=== PATIENT | male | born 1955 | race Caucasian/White ===

== ENCOUNTER 2016-05-04 15:15 | Outpatient (RCR) | payer BC ==
[~2016-05-04 15:15] MED LIST: ACTOS 15MG TAB15 MG PO; AMBIEN 5MG TABLE5 MG PO; ASPIRIN 32325 MG/TAB PO; ASPIRIN 81M81 MG/TA2 PO; CANA300T PO; CEPHALEXIN500 M1 PO; CIALIS20 MG PO; COREG 6.256.25 MG/TA PO; COUMADIN 5MG5 MG/TAB PO; COUMADIN 77.5 MG/TAB PO; DEXILANT60 MG PO; GLUCOPHAGE; HCTZ12.5TAB PO; HYZAAR 12.5 MG-1 TAB PO; IMDUR 30MG30 MG/TAB PO; IMDUR 60MG60 MG/TAB PO; INSULIN 70/3100 U/ML IJ; JANTOVEN2 MG; JANUVIA25 MG PO; JARDIANCE25 PO; LEVAQUIN 5500 MG/TA1 PO; LEVEMIR SQ; LEVEMIR100 U/ML SQ; LIPITOR 80MG80 MG PO; LOTENSIN20 MG PO; LOTREL 5/20 CAP1 CAP PO; LOVENOX 100100 MG/ML SQ; MICROZIDE12.5 MG PO; NEURONTIN300 MG/CAP PO; NEXIUM 40MG40 MG PO; NIASPAN1000 MG PO; NITROSTAT0.4 MG/TAB SL; NORVASC 5MG5 MG/TAB PO; NOVLOG SC; NOVLOG SQ; PEPCID 20MG TAB20 MG PO; PHENERGAN 25 TA25 MG PO; PLAVIX 75MG TAB75 MG PO; PRILOSEC10 MG PO; PROTONIX 40MG T40 MG PO; REGLAN 10MG10 MG/TAB PO; REQUIP XL2 MG PO; REQUIP XL8 MG PO; REQUIP5 MG PO; RT ADVAIR 228 DISKUS IH; SYNTHROID0.05 MG/TA PO; TESSALON PERLE200 MG PO; TIROSINT50 MC1 PO; TIROSINT50 MCG PO; TOPROL XL 25MG25 MG PO; TRESIBA FL200 UNIT/1 SQ; [UNRECOGNIZED DRUG - CODE] PO
== END 2016-05-09 | disposition home or self-care (01) ==
LOC: WSST
DX: R41.3 Other amnesia (principal); G20 Parkinson's disease

== ENCOUNTER 2016-06-13 14:00 | Outpatient (RCR) | payer BC | END 2016-08-08 | disposition home or self-care (01) | LOC: MKS.ESL.PT | DX: G62.9 Polyneuropathy, unspecified (principal) ==

== ENCOUNTER 2016-09-12 15:37 | Observation (INO) | payer BC ==
[~2016-09-12] VITALS: Ht 170.2 cm; Wt 107.3 kg
[2016-09-12] MEDS ORDERED: SINEMET 25/101 UDTAB PO (16:16)
[2016-09-12] MEDS ORDERED: TESSALON PERLE200 MG PO (16:16)
[2016-09-12] MEDS ORDERED: ARICEPT10 MG PO (16:17)
[2016-09-12] MEDS ORDERED: IMDUR 60MG60 MG/TAB PO (16:17)
[2016-09-12 16:19] LABS: BASO # 0.1 (0.0-0.2); EOS # 0.3 (0.0-0.7); EOS % 3.8 % (0-4.0); GRAN # 4.1 (1.4-6.5); GRAN % 53.4 % (42.2-75.2); HEMOGLOBIN 14.5 g/dl (13.5-18.0); LYMPH # 2.3 (1.2-3.4); LYMPH % 29.5 % (20.0-51.0); MEAN CELL VOLUME 85 fl (80.0-100.0); MEAN CORPUSCULAR HEMOGLOBIN 29 pg (27.0-31.0); MEAN CORPUSCULAR HGB CONC 35 g/dl (33.0-37.0); MEAN PLATELET VOLUME 11.4 fl (7.4-10.4); MONO # 0.9 (0.1-0.6); MONO % 11.3 % (1.7-9.3); PLATELET COUNT 197 K/mm3 (130-400); RED BLOOD COUNT 4.97 M/mm3 (4.20-5.60); REDCELL DISTRIBUTION WIDTH-CV 12.1 % (11.5-14.5); WHITE BLOOD COUNT 7.6 K/mm3 (4.8-10.8)
[2016-09-12 16:49] LABS: ALBUMIN 3.8 gm/dL (3.5-5.0); BILIRUBIN,TOTAL 0.9 mg/dL (0.0-1.0); CREATININE, serum 1.24 mg/dL (0.66-1.25); POTASSIUM 3.9 mmol/L (3.4-5.0); TOTAL PROTEIN 6.9 gm/dL (6.4-8.2)
[2016-09-12 17:00] LABS: ADJUSTED CALCIUM 9.2 mg/dL (8.4-10.2)
[2016-09-12 17:01] LABS: TROPONIN-I 0.02 ng/mL (0.000-0.034)
[2016-09-12 18:53] LABS: PROTHROMBIN TIME 11.1 SECONDS (9.7-12.8)
[2016-09-12 18:57] LABS: MAGNESIUM 1.8 mg/dL (1.6-2.3)
[2016-09-12 20:24] VITALS: BP 150/79; PULSE 62; TEMP 98.3
[2016-09-13] VITALS (16 sets, daily range): BP systolic 102–138; BP diastolic 55–76; PULSE 51–67; TEMP 97.5–98.6
[2016-09-13 09:12] LABS: TROPONIN-I 0.016 ng/mL (0.000-0.034)
[2016-09-13 11:50] LABS: HEMATOCRIT 38.9 % (42.0-52.0); HEMOGLOBIN 12.9 g/dl (13.5-18.0); MEAN CELL VOLUME 89 fl (80.0-100.0); MEAN CORPUSCULAR HEMOGLOBIN 29 pg (27.0-31.0); MEAN CORPUSCULAR HGB CONC 33 g/dl (33.0-37.0); MEAN PLATELET VOLUME 11.6 fl (7.4-10.4); PLATELET COUNT 201 K/mm3 (130-400); RED BLOOD COUNT 4.39 M/mm3 (4.20-5.60); REDCELL DISTRIBUTION WIDTH-CV 12.4 % (11.5-14.5); WHITE BLOOD COUNT 7.7 K/mm3 (4.8-10.8)
[2016-09-13 12:20] LABS: PROTHROMBIN TIME 11.6 SECONDS (9.7-12.8)
[2016-09-13 12:21] LABS: CALCIUM 8.4 mg/dL (8.4-10.2); CREATININE, serum 1.46 mg/dL (0.66-1.25); POTASSIUM 3.7 mmol/L (3.4-5.0)
[2016-09-13 12:22] LABS: PARTIAL THROMBOPLASTIN TIME 36.6 SECONDS (26.0-37.0)
[2016-09-14 00:41] VITALS: BP 124/63; PULSE 71; TEMP 98.3
[2016-09-14 04:34] VITALS: BP 146/69; PULSE 62; TEMP 97.6
[2016-09-14 07:40] VITALS: BP 152/78; PULSE 61; TEMP 97.9
[2016-09-14 07:40] LABS: CALCIUM 8.5 mg/dL (8.4-10.2); CREATININE, serum 1.29 mg/dL (0.66-1.25); POTASSIUM 4.1 mmol/L (3.4-5.0)
[2016-09-14 11:29] VITALS: BP 167/88; PULSE 61; TEMP 97.4
[2016-09-14] MEDS ORDERED: BRILINTA90 MG PO ×2 (14:06→14:07)
[2016-09-14] MEDS ORDERED: ZOFRAN 4MG T4 MG/TAB PO (14:18)
== END 2016-09-14 15:51 | disposition home or self-care (01) ==
LOC: COL.ER 15:37 → MEDICAL 17:26
PROVIDERS: Emergency Medicine; Internal Medicine Interventional Cardiology; Nurse Practitioner Family; Physician Assistant
DX: I25.110 Atherosclerotic heart disease of native coronary artery with unstable angina pectoris (principal); E03.9 Hypothyroidism, unspecified; G20 Parkinson's disease; E78.5 Hyperlipidemia, unspecified; I26.99 Other pulmonary embolism without acute cor pulmonale; E11.40 Type 2 diabetes mellitus with diabetic neuropathy, unspecified; I13.10 Hypertensive heart and chronic kidney disease without heart failure, with stage 1 through stage 4 chronic kidney disease, or unspecified chronic kidney disease; E11.22 Type 2 diabetes mellitus with diabetic chronic kidney disease; N18.9 Chronic kidney disease, unspecified; E78.00 Pure hypercholesterolemia, unspecified; K22.70 Barrett's esophagus without dysplasia; K29.70 Gastritis, unspecified, without bleeding; Z79.4 Long term (current) use of insulin; Z79.84 Long term (current) use of oral hypoglycemic drugs; Z79.82 Long term (current) use of aspirin; Z95.5 Presence of coronary angioplasty implant and graft; Z79.01 Long term (current) use of anticoagulants; Z82.49 Family history of ischemic heart disease and other diseases of the circulatory system
CPT/HCPCS: C1769; G0378; J1644; J1815; J2250; J2405; J2765; J3010; J7030; Q9967

== ENCOUNTER → 2017-10-11 | Outpatient (CLI) | payer BC ==
[~2017-10-11] MED LIST changes: +ARICEPT10 MG PO; +BRILINTA90 MG PO; +SINEMET 25/101 UDTAB PO; +ZOFRAN 4MG T4 MG/TAB PO
== END ==
LOC: COL.RAD 07:14
DX: R91.8 Other nonspecific abnormal finding of lung field (principal); Z18.12 Retained nonmagnetic metal fragments
CPT/HCPCS: Q9967

== ENCOUNTER 2018-12-09 11:23 | Emergency (ER) | payer MEDICARE ==
[~2018-12-09] VITALS: Ht 170.2 cm; Wt 104.5 kg
[2018-12-09 11:37] VITALS: TEMP 96.8
[2018-12-09 13:27] LABS: BASO # 0.1 (0.0-0.2); BASO % 1.3 % (0.0-2.0); EOS # 0.3 (0.0-0.7); EOS % 3.9 % (0-4.0); GRAN # 4.4 (1.4-6.5); GRAN % 61.9 % (42.2-75.2); HEMOGLOBIN 13.8 g/dl (13.5-18.0); LYMPH # 1.7 (1.2-3.4); LYMPH % 23.5 % (20.0-51.0); MEAN CELL VOLUME 87 fl (80.0-100.0); MEAN CORPUSCULAR HEMOGLOBIN 30 pg (27.0-31.0); MEAN CORPUSCULAR HGB CONC 35 g/dl (33.0-37.0); MEAN PLATELET VOLUME 11.6 fl (7.4-10.4); MONO # 0.6 (0.1-0.6); MONO % 8.6 % (1.7-9.3); PLATELET COUNT 203 K/mm3 (130-400); REDCELL DISTRIBUTION WIDTH-CV 11.9 % (11.5-14.5)
[2018-12-09 13:43] LABS: ALBUMIN 3.9 gm/dL (3.5-5.0); BILIRUBIN,TOTAL 0.8 mg/dL (0.0-1.0); C-REACTIVE PROTEIN 1.3 mg/dL (0.0-0.9); CALCIUM 8.9 mg/dL (8.4-10.2); CREATININE, serum 1.43 (0.66-1.25); POTASSIUM 4.9 mmol/L (3.4-5.0); TOTAL PROTEIN 6.9 gm/dL (6.4-8.2)
[2018-12-09] MEDS ORDERED: NOVOLIN 70/30 710 ML SQ (14:03)
[2018-12-09 15:23] LABS: COLLECTION METHOD CLEAN CATCH
[2018-12-09 15:33] LABS: PH 6 (5-8); SQUAMOUS EPITHELIAL 0-2 /hpf; URINE APPEARANCE Clear; URINE BACTERIA None Seen /hpf; URINE BILIRUBIN Negative (NEGATIVE); URINE BLOOD 1+ (NEGATIVE); URINE COLOR Yellow; URINE GLUCOSE 3+ (NEGATIVE); URINE KETONE Negative (NEGATIVE); URINE LEUKOCYTE ESTERASE Negative (NEGATIVE); URINE NITRATE Negative (NEGATIVE); URINE PROTEIN(semi-quant) 2+ (NEGATIVE); URINE RBC 0-2 /hpf; URINE UROBILINOGEN Negative (NEGATIVE)
[2018-12-09] MEDS ORDERED: VALIUM 2MG T2 MG/TAB PO (17:04)
[2018-12-09 17:14] VITALS: BP 159/79; PULSE 62
== END 2018-12-09 17:19 | disposition home or self-care (01) ==
LOC: COL.ER 11:23
PROVIDERS: Family Medicine
DX: E11.65 Type 2 diabetes mellitus with hyperglycemia (principal); E86.0 Dehydration; I10 Essential (primary) hypertension; G20 Parkinson's disease; Z79.82 Long term (current) use of aspirin; Z79.4 Long term (current) use of insulin
CPT/HCPCS: J1815; J2405; J7030; J7120

== ENCOUNTER 2019-05-07 09:18 | Outpatient (CLI) | payer MEDICARE ==
[2019-05-07] VITALS (8 sets, daily range): BP systolic 173–189; BP diastolic 86–172; PULSE 62–173
[~2019-05-07] VITALS: Ht 170.2 cm; Wt 105.6 kg
[~2019-05-07 09:18] MED LIST changes: +NOVOLIN 70/30 710 ML SQ; +VALIUM 2MG T2 MG/TAB PO
--- NOTE | 2019-05-07 11:40 | NUR ---
DR HOLLY CALLS TO CHECK ON PT. REFERRED DR HOLLY TO [facility] IN [place].
[2019-05-07 11:51] LABS: GLUCOSE,CSF 220 mg/dL (40-70); TOTAL PROTEIN,CSF 90 mg/dL (15-45)
[2019-05-07 12:53] LABS: CSF APPEARANCE CLEAR; CSF COLOR COLORLESS; CSF RBC 49 /mm3 (0-0)
[2019-05-07 12:55] LABS: CSF MONONUCLEAR 98 % (70-100); CSF POLYMORPHONUCLEAR 2 % (0-6)
--- NOTE | 2019-05-07 13:00 | NUR ---
Pt is ready for discharge. 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 puncture site to back covered with clean and dry bandaid. pt denies any questions about dc instructions, and is ambulatory to exit with his daughter.
[2019-05-10 13:14] LABS: IGG/ALBUMIN SERUM 0.27 (<=0.40)
[2019-05-10 15:14] LABS: ALBUMIN CSF 45.3 mg/dL (<=27.0)
[2019-05-10 15:59] LABS: CSF IGG/ALBUMIN 0.13 (<=0.21); CSF SYNTHESIS RATE 1.71 mg/24 h (<=12); CSF,IGG 5.9 mg/dL (<=8.1); CSF-IGG INDEX 0.48 (<=0.85)
== END 2019-05-07 13:00 | disposition home or self-care (01) ==
LOC: COL.RAD 09:18
PROVIDERS: Psychiatry & Neurology Neurology
DX: G91.2 (Idiopathic) normal pressure hydrocephalus (principal); R26.81 Unsteadiness on feet

== ENCOUNTER 2019-05-24 03:17 | Inpatient (IN) | payer MEDICARE ==
[2019-05-24] VITALS (520 sets, daily range): BP systolic 145–158; BP diastolic 67–91; PULSE 72–94; TEMP 98–99.8; O2SAT 73–100
[~2019-05-24] VITALS: Ht 172.7 cm; Wt 104.7 kg
[2019-05-24 03:31] LABS: BASO # 0.1 (0.0-0.2); BASO % 0.6 % (0.0-2.0); EOS % 0.5 % (0-4.0); GRAN # 6.3 (1.4-6.5); GRAN % 81.1 % (42.2-75.2); HEMATOCRIT 48.7 % (42.0-52.0); HEMOGLOBIN 16.4 g/dl (13.5-18.0); LYMPH # 0.8 (1.2-3.4); LYMPH % 9.9 % (20.0-51.0); MEAN CELL VOLUME 87 fl (80.0-100.0); MEAN CORPUSCULAR HEMOGLOBIN 29 pg (27.0-31.0); MEAN CORPUSCULAR HGB CONC 34 g/dl (33.0-37.0); MEAN PLATELET VOLUME 11.7 fl (7.4-10.4); MONO # 0.5 (0.1-0.6); MONO % 5.8 % (1.7-9.3); PLATELET COUNT 254 K/mm3 (130-400); RED BLOOD COUNT 5.63 M/mm3 (4.20-5.60); REDCELL DISTRIBUTION WIDTH-CV 11.9 % (11.5-14.5)
[2019-05-24 03:36] LABS: PROTHROMBIN TIME 11.9 SECONDS (9.7-12.8)
[2019-05-24 03:39] LABS: ALBUMIN 4.5 gm/dL (3.5-5.0); BILIRUBIN,TOTAL 0.7 mg/dL (0.0-1.0); CALCIUM 9.5 mg/dL (8.4-10.2); CREATININE, serum 1.71 (0.66-1.25); POTASSIUM 4.8 mmol/L (3.4-5.0)
[2019-05-24 03:50] LABS: TROPONIN-I 0.021 ng/mL (0.000-0.035)
[2019-05-24 05:59] LABS: COLLECTION METHOD CLEAN CATCH
[2019-05-24 06:04] LABS: MUCOUS Present /lpf; PH 5 (5-8); SQUAMOUS EPITHELIAL 0-2 /hpf; URINE APPEARANCE Hazy; URINE BACTERIA None Seen /hpf; URINE BILIRUBIN Negative (NEGATIVE); URINE BLOOD 2+ (NEGATIVE); URINE COLOR Yellow; URINE GLUCOSE 3+ (NEGATIVE); URINE KETONE 1+ (NEGATIVE); URINE LEUKOCYTE ESTERASE Negative (NEGATIVE); URINE NITRATE Negative (NEGATIVE); URINE PROTEIN(semi-quant) 3+ (NEGATIVE); URINE RBC 0-2 /hpf; URINE UROBILINOGEN Negative (NEGATIVE)
[2019-05-24 06:12] LABS: ARTERIAL BLD GAS O2 SATURATION 95.6 % (92-100); ARTERIAL BLD GAS TCO2 CT 18.8; ARTERIAL BLOOD GAS BASE EXCESS -5.3 (-2-2); ARTERIAL BLOOD GAS HCO3 17.9 meq/L (22-26); ARTERIAL BLOOD GAS pH 7.41 (7.35-7.45)
--- NOTE | 2019-05-24 09:00 | NUR ---
PT C/O NAUSEA UPON COMING TO FLOOR. THIS NURSE RECIEVED ORDER FOR ZOFRAN AND ADMINISTERED.
--- NOTE | 2019-05-24 09:16 | NUR ---
SW met with the patient to discuss discharge plan. The patient lives in [place] with his , Nicolette ([phone]). He reports needing assistance with ADLs and has a cane. He states that his helps him with bathing and using the restroom. The patient's PCP is Dr. Vinny Owen and he receives his medications at [facility]. He reports no difficulties obtaining his meds. The patient does not have advanced directives completed, but he was interested in obtaining a form for DPOA-HC. SW provided. The patient is to tentatively transfer to the ICU. SW to continue to follow to ensure a safe discharge.
[2019-05-24 09:37] LABS: CALCIUM 7.8 mg/dL (8.4-10.2); CREATININE, serum 1.52 (0.66-1.25); POTASSIUM 4.3 mmol/L (3.4-5.0)
[2019-05-24 10:15] LABS: MAGNESIUM 1.7 mg/dL (1.6-2.3); PHOSPHOROUS 3.4 mg/dL (2.5-4.5)
--- NOTE | 2019-05-24 11:20 | NUR ---
HEP GTT STARTED AT THIS TIME. INFORMED PT OF VQ SCAN AND RATIONELLE FOR HEP GTT. ADITI MAYORGA IN TO COSIGN AT THIS TIME.
[2019-05-24 11:39] LABS: CREATININE, serum 0.83 (0.66-1.25)
[2019-05-24 11:46] LABS: POTASSIUM 2.5 mmol/L (3.4-5.0)
[2019-05-24 11:49] LABS: CALCIUM 4.6 mg/dL (8.4-10.2)
--- NOTE | 2019-05-24 13:00 | NUR ---
REPORT GIVEN TO ICU NURSE. HEP GTT INFUSING. PT TO BE GOING TO ICU AFTER VQ SCAN. VQ SCAN TO TAKE PLACE THIS AFTERNOON APPROX 1400. HEP GTT INFUSING WITHOUT ISSUES TO RT ARM.
--- NOTE | 2019-05-24 14:00 | NUR ---
PT DOWN FOR VQ SCAN AT THIS TIME. CALLED [facility] TO LET THEM KNOW PT WILL BE GOING TO ICU AFTERWARDS. PAUSED IV SALINE BUT LEFT HEP GTT INFUSING.
--- NOTE | 2019-05-24 14:57 | NUR ---
PT TRANSFERRED FROM FLOOR TO ICU 6 VIA WHEELCHAIR. PT AWAKE, ALERT, AND ORIENTED.
[2019-05-24 15:44] LABS: CALCIUM 7.8 mg/dL (8.4-10.2); CREATININE, serum 1.54 (0.66-1.25); POTASSIUM 4.2 mmol/L (3.4-5.0)
--- NOTE | 2019-05-24 16:00 | NUR ---
REPORT GIVEN TO MUKESH GREEN. PATIENT LYING IN BED WITH NO COMPLAINTS. CARE TURNED OVER AT THIS TIME.
--- NOTE | 2019-05-24 16:00 | NUR ---
REPORT GIVEN TO MUKESH GREEN
[2019-05-24 17:24] LABS: CALCIUM 7.7 mg/dL (8.4-10.2); CREATININE, serum 1.58 (0.66-1.25); POTASSIUM 4.1 mmol/L (3.4-5.0)
--- NOTE | 2019-05-24 19:30 | NUR ---
Assessment complete; Patient returned to bed from using bathroom. Patient denes any pain. Reports feeling "tired" with some mild shortness of breath; o2 within normal limits on RA. Food tray provided to patient at this time. Will continue to monitor.
[2019-05-25] VITALS (865 sets, daily range): BP systolic 136–164; BP diastolic 75–87; PULSE 62–76; TEMP 97.8–98.8; O2SAT 76–100
--- NOTE | 2019-05-25 00:15 | NUR ---
Assisted up to use bedside urinal. No complaints at this time. Call light left within reach.
[2019-05-25 05:32] LABS: BASO % 0.4 % (0.0-2.0); EOS % 0.7 % (0-4.0); GRAN # 3.1 (1.4-6.5); GRAN % 57.2 % (42.2-75.2); LYMPH # 1.6 (1.2-3.4); LYMPH % 29.7 % (20.0-51.0); MEAN CELL VOLUME 89 fl (80.0-100.0); MEAN CORPUSCULAR HGB CONC 34 g/dl (33.0-37.0); MEAN PLATELET VOLUME 11.5 fl (7.4-10.4); MONO # 0.6 (0.1-0.6); MONO % 10.3 % (1.7-9.3); PLATELET COUNT 183 K/mm3 (130-400); REDCELL DISTRIBUTION WIDTH-CV 12.2 % (11.5-14.5)
[2019-05-25 05:37] LABS: HEMATOCRIT 36.3 % (42.0-52.0); HEMOGLOBIN 12.2 g/dl (13.5-18.0); MEAN CORPUSCULAR HEMOGLOBIN 30 pg (27.0-31.0)
[2019-05-25 05:42] LABS: CALCIUM 7.3 mg/dL (8.4-10.2); CREATININE, serum 1.43 (0.66-1.25); POTASSIUM 3.9 mmol/L (3.4-5.0)
--- NOTE | 2019-05-25 07:00 | NUR ---
Bedside report given to MUKESH Alvarez. Patient care transfered.
--- NOTE | 2019-05-25 08:00 | NUR ---
Shift assessment complete at this time. Plan of care reviewed at bedside with patient. Additional time taken to address any other needs or concerns. Vitals stable at this time. Pt denies pain or any other discomfort. Bed in low position, call light within reach, will continue to monitor.
--- NOTE | 2019-05-25 10:16 | NUR ---
Visited, listened, and provided spiritual care.
--- NOTE | 2019-05-25 12:00 | NUR ---
Pt resting comfortably in bed. Denies pain or any other discomforts. Vitals stable at this time. Bed in low position, call light within reach, will continue to monitor.
--- NOTE | 2019-05-25 16:00 | NUR ---
Pt sleeping comfortably in bed. Denies pain or any other discomforts. Vitals stable at this time. Bed in low position, call light within reach, will continue to monitor.
--- NOTE | 2019-05-25 19:01 | NUR ---
Bedside report given to MUKESH Tirado.
--- NOTE | 2019-05-25 19:37 | NUR ---
Assessment complete; patient denies any concerns at this time. Requested tooth brush and bath wipes. Call light left within reach ; will continue to monitor.
--- NOTE | 2019-05-25 21:04 | NUR ---
COMPLETING INTERVENTION PER PROTOCOL. PT ON RA >24HRS
[2019-05-26] VITALS (511 sets, daily range): BP systolic 146–168; BP diastolic 80–91; PULSE 58–64; TEMP 97.5–98.3; O2SAT 83–100
--- NOTE | 2019-05-26 03:29 | NUR ---
Assisted patient up to side of bed to use urinal. When finished patient stated he felt a little "weaker" than before. Reported some dizziness. VS within normal limits for patient and neuro checks WNL. Will continue to monitor.
[2019-05-26 05:09] LABS: BASO % 0.5 % (0.0-2.0); EOS # 0.2 (0.0-0.7); GRAN # 1.8 (1.4-6.5); GRAN % 43.4 % (42.2-75.2); HEMOGLOBIN 11.6 g/dl (13.5-18.0); LYMPH # 1.6 (1.2-3.4); MEAN CELL VOLUME 88 fl (80.0-100.0); MEAN CORPUSCULAR HEMOGLOBIN 29 pg (27.0-31.0); MEAN CORPUSCULAR HGB CONC 33 g/dl (33.0-37.0); MEAN PLATELET VOLUME 11.4 fl (7.4-10.4); MONO # 0.4 (0.1-0.6); MONO % 10.9 % (1.7-9.3); PLATELET COUNT 169 K/mm3 (130-400); RED BLOOD COUNT 3.96 M/mm3 (4.20-5.60); REDCELL DISTRIBUTION WIDTH-CV 12.1 % (11.5-14.5)
[2019-05-26 05:12] LABS: HEMATOCRIT 34.9 % (42.0-52.0)
[2019-05-26 05:24] LABS: CALCIUM 7.3 mg/dL (8.4-10.2); CREATININE, serum 1.11 (0.66-1.25); POTASSIUM 3.5 mmol/L (3.4-5.0)
--- NOTE | 2019-05-26 12:00 | NUR ---
Pt resting comfortably in bed. Denies pain or any other discomfort. Vitals stable at this time. Bed in low position, call light within reach, will continue to monitor.
[2019-05-26] MEDS ORDERED: TESSALON P100 MG/CAP PO (14:29)
[2019-05-26] MEDS ORDERED: ZOFRAN 4MG T4 MG/TAB PO (14:29)
[2019-05-26] MEDS ORDERED: AMOXICILLIN 8751 TAB PO (14:31)
--- NOTE | 2019-05-26 15:30 | NUR ---
Pt discharged at this time to home via private vehicle. Pt transported to vehicle via wheelchair. Discharge education and packet provided. Additional time taken to address all questions and concerns of patient et spouse.
== END 2019-05-26 15:30 | disposition home or self-care (01) | DRG 56 ==
LOC: COL.ER 03:17 → MEDICAL 06:34 → ICU 13:47
PROVIDERS: Emergency Medicine; Physician Assistant; Student in an Organized Health Care Education/Training Program; ADMIT Internal Medicine
PROC: 009U3ZZ Drainage of Spinal Canal, Percutaneous Approach (ICD-10-PCS; principal; 2019-05-26)
PROC: B01B1ZZ Fluoroscopy of Spinal Cord using Low Osmolar Contrast (ICD-10-PCS; 2019-05-26)
DX: G91.2 (Idiopathic) normal pressure hydrocephalus (principal); E11.10 Type 2 diabetes mellitus with ketoacidosis without coma; J96.01 Acute respiratory failure with hypoxia; N17.9 Acute kidney failure, unspecified; R55 Syncope and collapse; E11.22 Type 2 diabetes mellitus with diabetic chronic kidney disease; N18.9 Chronic kidney disease, unspecified; E03.9 Hypothyroidism, unspecified; E78.5 Hyperlipidemia, unspecified; Z86.711 Personal history of pulmonary embolism; I25.10 Atherosclerotic heart disease of native coronary artery without angina pectoris; I12.9 Hypertensive chronic kidney disease with stage 1 through stage 4 chronic kidney disease, or unspecified chronic kidney disease; Z79.82 Long term (current) use of aspirin; R11.2 Nausea with vomiting, unspecified; J32.0 Chronic maxillary sinusitis; Z95.5 Presence of coronary angioplasty implant and graft; E11.40 Type 2 diabetes mellitus with diabetic neuropathy, unspecified; Z79.4 Long term (current) use of insulin; R79.1 Abnormal coagulation profile; R07.9 Chest pain, unspecified
CPT/HCPCS: 99223-AI; 99233-AI; 99239; A9540; A9567; J1644; J1815; J2405; J3480; J7030

== ENCOUNTER 2019-06-04 14:20 | Emergency (ER) | payer MEDICARE, OTHER ==
[~2019-06-04] VITALS: Ht 172.7 cm; Wt 109.1 kg
[~2019-06-04 14:20] MED LIST changes: -ZITHROMAX 250M250 MG PO
[2019-06-04 14:24] VITALS: TEMP 97.6
[2019-06-04 16:01] LABS: BASO % 0.5 % (0.0-2.0); EOS # 0.3 (0.0-0.7); EOS % 3.2 % (0-4.0); GRAN # 6.1 (1.4-6.5); GRAN % 72.2 % (42.2-75.2); HEMOGLOBIN 13.7 g/dl (13.5-18.0); LYMPH # 1.2 (1.2-3.4); LYMPH % 13.7 % (20.0-51.0); MEAN CELL VOLUME 89 fl (80.0-100.0); MEAN CORPUSCULAR HEMOGLOBIN 29 pg (27.0-31.0); MEAN CORPUSCULAR HGB CONC 33 g/dl (33.0-37.0); MEAN PLATELET VOLUME 11.1 fl (7.4-10.4); MONO # 0.7 (0.1-0.6); MONO % 8.4 % (1.7-9.3); PLATELET COUNT 233 K/mm3 (130-400)
[2019-06-04 16:07] LABS: PROTHROMBIN TIME 11.5 SECONDS (9.7-12.8)
[2019-06-04 16:13] LABS: ALBUMIN 3.3 gm/dL (3.5-5.0); BILIRUBIN,TOTAL 0.8 mg/dL (0.0-1.0); CALCIUM 8.5 mg/dL (8.4-10.2); CREATININE, serum 1.26 (0.66-1.25); TOTAL PROTEIN 6.2 gm/dL (6.4-8.2)
[2019-06-04 16:25] LABS: TROPONIN-I < 0.012 ng/mL (0.000-0.035)
[2019-06-04 16:29] LABS: PROLACTIN 21.8 ng/mL (3.7-17.9)
[2019-06-04] MEDS ORDERED: ZITHROMAX 250M250 MG PO (16:48)
[2019-06-05 04:18] LABS: COLLECTION METHOD CLEAN CATCH
[2019-06-05 04:23] LABS: PH 7 (5-8); SQUAMOUS EPITHELIAL None Seen /hpf; URINE APPEARANCE Clear; URINE BACTERIA None Seen /hpf; URINE BILIRUBIN Negative (NEGATIVE); URINE BLOOD Negative (NEGATIVE); URINE COLOR Yellow; URINE GLUCOSE 3+ (NEGATIVE); URINE KETONE Negative (NEGATIVE); URINE LEUKOCYTE ESTERASE Negative (NEGATIVE); URINE NITRATE Negative (NEGATIVE); URINE PROTEIN(semi-quant) 2+ (NEGATIVE); URINE RBC 0-2 /hpf; URINE UROBILINOGEN Negative (NEGATIVE)
[2019-06-05 08:00] VITALS: BP 174/104; PULSE 72
== END 2019-06-05 08:25 | disposition short-term general hospital (02) ==
LOC: COL.ER 14:20
PROVIDERS: Emergency Medicine
DX: R07.89 Other chest pain (principal); E11.22 Type 2 diabetes mellitus with diabetic chronic kidney disease; I12.9 Hypertensive chronic kidney disease with stage 1 through stage 4 chronic kidney disease, or unspecified chronic kidney disease; N18.9 Chronic kidney disease, unspecified; E78.5 Hyperlipidemia, unspecified; E03.9 Hypothyroidism, unspecified; G20 Parkinson's disease; E11.40 Type 2 diabetes mellitus with diabetic neuropathy, unspecified; Z86.711 Personal history of pulmonary embolism; Z95.5 Presence of coronary angioplasty implant and graft; Z79.82 Long term (current) use of aspirin; Z79.4 Long term (current) use of insulin
CPT/HCPCS: J0360; J1815; Q9967

== ENCOUNTER → 2019-06-04 | Outpatient (CLI) | payer MEDICARE, OTHER ==
[~2019-06-04] MED LIST changes: +AMOXICILLIN 8751 TAB PO; +TESSALON P100 MG/CAP PO; +ZITHROMAX 250M250 MG PO
[2019-06-04 13:13] LABS: CREATININE, serum 1.27 (0.66-1.25)
== END ==
LOC: COL.LAB 12:22
PROVIDERS: Neurological Surgery
DX: Z01.812 Encounter for preprocedural laboratory examination (principal); G91.2 (Idiopathic) normal pressure hydrocephalus

== ENCOUNTER → 2019-10-02 | Emergency (ER) | payer MEDICARE, OTHER ==
[~2019-10-02] VITALS: Ht 170.2 cm; Wt 109.1 kg
[~2019-10-02] MED LIST changes: +ZITHROMAX 250M250 MG PO
[2019-10-02 12:08] VITALS: TEMP 97
[2019-10-02 12:31] LABS: PROTHROMBIN TIME 11.1 SECONDS (9.7-12.8)
[2019-10-02 12:35] LABS: BASO # 0.1 (0.0-0.2); BASO % 1.4 % (0.0-2.0); EOS # 0.3 (0.0-0.7); EOS % 4.6 % (0-4.0); GRAN # 3.3 (1.4-6.5); HEMATOCRIT 40.9 % (42.0-52.0); HEMOGLOBIN 13.8 g/dl (13.5-18.0); LYMPH # 2.3 (1.2-3.4); LYMPH % 34.9 % (20.0-51.0); MEAN CELL VOLUME 87 fl (80.0-100.0); MEAN CORPUSCULAR HEMOGLOBIN 29 pg (27.0-31.0); MEAN CORPUSCULAR HGB CONC 34 g/dl (33.0-37.0); MEAN PLATELET VOLUME 11.6 fl (7.4-10.4); MONO # 0.5 (0.1-0.6); PLATELET COUNT 186 K/mm3 (130-400); RED BLOOD COUNT 4.71 M/mm3 (4.20-5.60); REDCELL DISTRIBUTION WIDTH-CV 11.8 % (11.5-14.5)
[2019-10-02 12:41] LABS: ALBUMIN 3.6 gm/dL (3.5-5.0); BILIRUBIN,TOTAL 0.6 mg/dL (0.0-1.0); CALCIUM 8.9 mg/dL (8.4-10.2); CREATININE, serum 1.43 (0.66-1.25); POTASSIUM 4.5 mmol/L (3.4-5.0); TOTAL PROTEIN 6.7 gm/dL (6.4-8.2)
[2019-10-02 16:00] VITALS: BP 205/115; PULSE 105
== END ==
LOC: COL.ER 12:01
PROVIDERS: Emergency Medicine
DX: R53.1 Weakness (principal); E11.9 Type 2 diabetes mellitus without complications; Z79.82 Long term (current) use of aspirin; Z79.4 Long term (current) use of insulin; Z98.2 Presence of cerebrospinal fluid drainage device
CPT/HCPCS: J1953; J3010; J7030; Q9967

== ENCOUNTER → 2019-10-30 | Outpatient (CLI) | payer MEDICARE | LOC: COL.RAD 13:40 | DX: I62.9 Nontraumatic intracranial hemorrhage, unspecified (principal); G91.2 (Idiopathic) normal pressure hydrocephalus; Z98.2 Presence of cerebrospinal fluid drainage device ==

== ENCOUNTER 2019-11-21 10:06 | Inpatient (IN) | payer MEDICARE ==
[~2019-11-21] VITALS: Wt 85.7 kg
[~2019-11-21 10:06] MED LIST changes: +NEURONTIN100 MG/CAP PO
[2019-11-21 10:57] LABS: BASO # 0.1 (0.0-0.2); EOS # 0.4 (0.0-0.7); EOS % 4.1 % (0-4.0); GRAN # 5.4 (1.4-6.5); GRAN % 59.4 % (42.2-75.2); HEMOGLOBIN 12.2 g/dl (13.5-18.0); LYMPH # 2.1 (1.2-3.4); LYMPH % 23.4 % (20.0-51.0); MEAN CELL VOLUME 89 fl (80.0-100.0); MEAN CORPUSCULAR HEMOGLOBIN 29 pg (27.0-31.0); MEAN CORPUSCULAR HGB CONC 33 g/dl (33.0-37.0); MEAN PLATELET VOLUME 11.4 fl (7.4-10.4); MONO % 11.5 % (1.7-9.3); PLATELET COUNT 229 K/mm3 (130-400); RED BLOOD COUNT 4.16 M/mm3 (4.20-5.60); REDCELL DISTRIBUTION WIDTH-CV 12.8 % (11.5-14.5)
[2019-11-21 10:58] LABS: HEMATOCRIT 36.9 % (42.0-52.0)
[2019-11-21 11:02] LABS: INR 1.2 (0.8-3.0); PROTHROMBIN TIME 13.2 SECONDS (9.7-12.8)
[2019-11-21 11:03] LABS: ALBUMIN 3.6 gm/dL (3.5-5.0); BILIRUBIN,TOTAL 0.6 mg/dL (0.0-1.0); CALCIUM 8.7 mg/dL (8.4-10.2); CREATININE, serum 1.67 (0.66-1.25); POTASSIUM 4.5 mmol/L (3.4-5.0); TOTAL PROTEIN 6.8 gm/dL (6.4-8.2)
[2019-11-21] MEDS ORDERED: PRINIVIL5 MG PO (11:32)
[2019-11-21] MEDS ORDERED: PLAVIX 75MG TAB75 MG PO (11:32)
[2019-11-21] MEDS ORDERED: LEXAPRO 10MG10 MG PO (11:34)
[2019-11-21] MEDS ORDERED: DULCOLAX STOOL100 MG PO (11:35)
[2019-11-21] MEDS ORDERED: FLEXERIL 1010 MG/TAB PO (11:36)
[2019-11-21] MEDS ORDERED: FLOMAX 0.40.4 MG/CAP PO (11:36)
[2019-11-21] MEDS ORDERED: ULTRAM 50MG TAB50 MG PO (11:37)
[2019-11-21 15:00] LABS: COLLECTION METHOD CLEAN CATCH
[2019-11-21 15:06] LABS: PH 6 (5-8); SQUAMOUS EPITHELIAL None Seen /hpf; URINE APPEARANCE Turbid; URINE BACTERIA None Seen /hpf; URINE BILIRUBIN Negative (NEGATIVE); URINE BLOOD 1+ (NEGATIVE); URINE COLOR Yellow; URINE GLUCOSE Negative (NEGATIVE); URINE KETONE Negative (NEGATIVE); URINE LEUKOCYTE ESTERASE 3+ (NEGATIVE); URINE NITRATE Positive (NEGATIVE); URINE PROTEIN(semi-quant) 2+ (NEGATIVE); URINE RBC 20-50 /hpf; URINE UROBILINOGEN Negative (NEGATIVE)
[2019-11-21 16:20] VITALS: BP 169/79; PULSE 87; TEMP 98.5
[2019-11-21 17:16] VITALS: BP 169/79; PULSE 87; TEMP 98.5
--- NOTE | 2019-11-21 18:00 | NUR ---
Pt arrived to the unit into room 308, he is A/O x4. He has facial drooping to the right side but has equality with smiling and puffing cheeks. R leg weaker but patient is able to move and lift. Pt denies any pain. N/T to R thigh. IV to LFA flushes without complications. Pt reported feeling as if sugar was low checked and 59, passed bed side swallow, OJ administered. Corrected with juice. POC discussed with patient who verbalized understanding.
[2019-11-21 20:06] VITALS: BP 122/68; PULSE 77; TEMP 98.8
--- NOTE | 2019-11-21 20:41 | NUR ---
Resting in bed. Assessment complete. Lungs clear. Heart sounds normal. Bowels active x4. Pulses present throughout. No edema noted at this time. INT left forearm flushed without complications. Patient has right side facial droop with right sided weakness. Face symetrical while smiling. Patient is alert and oriented x3. Denies pain. Denies needs at this time. Call light in reach.
[2019-11-22 00:04] VITALS: BP 140/68; PULSE 81; TEMP 98.8
--- NOTE | 2019-11-22 00:04 | NUR ---
Resting in bed. Denies needs. Call in reach. Neuro check no changes.
--- NOTE | 2019-11-22 01:59 | NUR ---
Resting in bed. denies needs. Call light in reach.
--- NOTE | 2019-11-22 03:45 | NUR ---
Resting in bed. Denies needs. Call light in reach.
[2019-11-22 04:27] VITALS: BP 128/74; PULSE 81; TEMP 98.3
--- NOTE | 2019-11-22 05:58 | NUR ---
Patient had uneventful night. Resting in bed this AM. Call light in reach.
[2019-11-22 06:34] LABS: BASO # 0.1 (0.0-0.2); BASO % 1.1 % (0.0-2.0); EOS # 0.4 (0.0-0.7); GRAN # 4.4 (1.4-6.5); GRAN % 55.9 % (42.2-75.2); HEMOGLOBIN 11.2 g/dl (13.5-18.0); LYMPH # 2.1 (1.2-3.4); LYMPH % 26.2 % (20.0-51.0); MEAN CELL VOLUME 91 fl (80.0-100.0); MEAN CORPUSCULAR HEMOGLOBIN 30 pg (27.0-31.0); MEAN CORPUSCULAR HGB CONC 33 g/dl (33.0-37.0); MEAN PLATELET VOLUME 11.2 fl (7.4-10.4); MONO # 0.9 (0.1-0.6); MONO % 11.3 % (1.7-9.3); PLATELET COUNT 211 K/mm3 (130-400); RED BLOOD COUNT 3.79 M/mm3 (4.20-5.60); REDCELL DISTRIBUTION WIDTH-CV 12.9 % (11.5-14.5)
[2019-11-22 06:36] LABS: CALCIUM 8.5 mg/dL (8.4-10.2); CREATININE, serum 1.52 (0.66-1.25); POTASSIUM 4.2 mmol/L (3.4-5.0)
[2019-11-22 06:38] LABS: HEMATOCRIT 34.4 % (42.0-52.0)
--- NOTE | 2019-11-22 06:50 | NUR ---
awake resting in bed, bedside shift report received from MUKESH Ayala
--- NOTE | 2019-11-22 07:23 | NUR ---
Report given to MUKESH Holliday
[2019-11-22 07:47] VITALS: BP 154/72; PULSE 90; TEMP 98.2
--- NOTE | 2019-11-22 08:00 | NUR ---
resting in bed, has had breakfast and tolerated well, full assessment completed, see interventions for further info, denies needs at this time
--- NOTE | 2019-11-22 08:32 | NUR ---
speech therapy in to see patient
--- NOTE | 2019-11-22 10:59 | NUR ---
physical therapy in to work with patient
[2019-11-22] MEDS ORDERED: OMNICEF 300MG300 MG PO (11:56)
[2019-11-22 12:20] VITALS: BP 154/70; PULSE 75; TEMP 97.9
--- NOTE | 2019-11-22 13:11 | NUR ---
SAM met with the patient and his , Nicolette (ph#[phone]), to discuss discharge plan. The patient lives in [place] with his . He reports independence with ADLs and has a cane, walking stick, and walker. He also receives home health services from [facility]. SAM contacted and confirmed services from [facility]. SAM faxed [facility] updates. The patient's PCP is Dr. Vinny Owen and he receives his medications at [facility]. He reports no difficulties obtaining his meds. The patient does not have advanced directives completed, but his states that they do have DPOA-HC forms at home. The patient plans to return home with his upon discharge and resume home health services. The patient is to discharge back home with his today, 11/21, with home health services for intermediate/PT/OT/ST from [facility]. SAM notified and faxed discharge orders to [facility]. No additional needs at this time.
--- NOTE | 2019-11-22 13:36 | NUR ---
discharge instructions given to patient and his , verbalizes understanding
--- NOTE | 2019-11-22 13:48 | NUR ---
discharged per WC
== END 2019-11-22 13:48 | disposition home health service (06) | DRG 65 ==
LOC: COL.ER 10:06 → MEDICAL 13:45
PROVIDERS: Emergency Medicine; Physician Assistant; ADMIT Student in an Organized Health Care Education/Training Program
DX: I62.01 Nontraumatic acute subdural hemorrhage (principal); G81.91 Hemiplegia, unspecified affecting right dominant side; N39.0 Urinary tract infection, site not specified; G91.2 (Idiopathic) normal pressure hydrocephalus; N18.9 Chronic kidney disease, unspecified; E11.22 Type 2 diabetes mellitus with diabetic chronic kidney disease; E11.649 Type 2 diabetes mellitus with hypoglycemia without coma; I25.10 Atherosclerotic heart disease of native coronary artery without angina pectoris; I12.9 Hypertensive chronic kidney disease with stage 1 through stage 4 chronic kidney disease, or unspecified chronic kidney disease; E78.5 Hyperlipidemia, unspecified; E03.9 Hypothyroidism, unspecified; E11.40 Type 2 diabetes mellitus with diabetic neuropathy, unspecified; F32.9 Major depressive disorder, single episode, unspecified; N40.0 Benign prostatic hyperplasia without lower urinary tract symptoms; D63.1 Anemia in chronic kidney disease; Z98.2 Presence of cerebrospinal fluid drainage device; Z86.711 Personal history of pulmonary embolism; Z79.4 Long term (current) use of insulin; Z87.891 Personal history of nicotine dependence
CPT/HCPCS: 99223-AI; 99239; J0696; J1650; J7030

== ENCOUNTER 2019-12-05 12:29 | Emergency (ER) | payer MEDICARE ==
[~2019-12-05] VITALS: Ht 170.2 cm; Wt 104.5 kg
[~2019-12-05 12:29] MED LIST changes: +DULCOLAX STOOL100 MG PO; +FLEXERIL 1010 MG/TAB PO; +FLOMAX 0.40.4 MG/CAP PO; +LEXAPRO 10MG10 MG PO; +OMNICEF 300MG300 MG PO; +PRINIVIL5 MG PO; +ULTRAM 50MG TAB50 MG PO
[2019-12-05 12:34] VITALS: TEMP 97.9
[2019-12-05 13:01] LABS: BASO # 0.1 (0.0-0.2); BASO % 1.2 % (0.0-2.0); EOS # 0.3 (0.0-0.7); EOS % 4.6 % (0-4.0); GRAN # 3.8 (1.4-6.5); GRAN % 55.1 % (42.2-75.2); HEMATOCRIT 37.3 % (42.0-52.0); HEMOGLOBIN 12.4 g/dl (13.5-18.0); LYMPH % 29.1 % (20.0-51.0); MEAN CELL VOLUME 89 fl (80.0-100.0); MEAN CORPUSCULAR HEMOGLOBIN 30 pg (27.0-31.0); MEAN CORPUSCULAR HGB CONC 33 g/dl (33.0-37.0); MEAN PLATELET VOLUME 11.7 fl (7.4-10.4); MONO # 0.6 (0.1-0.6); MONO % 9.3 % (1.7-9.3); PLATELET COUNT 204 K/mm3 (130-400); RED BLOOD COUNT 4.21 M/mm3 (4.20-5.60); REDCELL DISTRIBUTION WIDTH-CV 12.5 % (11.5-14.5)
[2019-12-05 13:05] LABS: INR 1.1 (0.8-3.0); PROTHROMBIN TIME 11.9 SECONDS (9.7-12.8)
[2019-12-05 13:15] LABS: BILIRUBIN,TOTAL 0.6 mg/dL (0.0-1.0); CALCIUM 9.2 mg/dL (8.4-10.2); CREATININE, serum 1.45 (0.66-1.25); POTASSIUM 4.5 mmol/L (3.4-5.0); TOTAL PROTEIN 6.9 gm/dL (6.4-8.2)
[2019-12-05 13:23] LABS: TROPONIN-I 0.014 ng/mL (0.000-0.035)
[2019-12-05 14:11] LABS: COLLECTION METHOD CLEAN CATCH
[2019-12-05 14:17] LABS: MUCOUS Present /lpf; PH 5 (5-8); SQUAMOUS EPITHELIAL None Seen /hpf; URINE APPEARANCE Clear; URINE BACTERIA None Seen /hpf; URINE BILIRUBIN Negative (NEGATIVE); URINE BLOOD Negative (NEGATIVE); URINE COLOR Yellow; URINE GLUCOSE 3+ (NEGATIVE); URINE KETONE Trace (NEGATIVE); URINE LEUKOCYTE ESTERASE Negative (NEGATIVE); URINE NITRATE Negative (NEGATIVE); URINE PROTEIN(semi-quant) 2+ (NEGATIVE); URINE RBC 0-2 /hpf; URINE UROBILINOGEN Negative (NEGATIVE)
[2019-12-05 16:50] VITALS: BP 149/84; PULSE 64
== END 2019-12-05 16:51 | disposition home or self-care (01) ==
LOC: COL.ER 12:29
PROVIDERS: Emergency Medicine
DX: R53.1 Weakness (principal); I25.10 Atherosclerotic heart disease of native coronary artery without angina pectoris; Z95.5 Presence of coronary angioplasty implant and graft; Z98.2 Presence of cerebrospinal fluid drainage device; Z86.73 Personal history of transient ischemic attack (TIA), and cerebral infarction without residual deficits; Z79.82 Long term (current) use of aspirin
CPT/HCPCS: J7030

== ENCOUNTER 2020-01-20 15:57 | Observation (INO) | payer MEDICARE ==
[~2020-01-20] VITALS: Ht 172.7 cm; Wt 102.1 kg
[2020-01-20 16:48] LABS: BASO # 0.1 (0.0-0.2); BASO % 1.6 % (0.0-2.0); EOS # 0.3 (0.0-0.7); EOS % 6.7 % (0-4.0); GRAN # 1.8 (1.4-6.5); GRAN % 41.8 % (42.2-75.2); HEMOGLOBIN 11.7 g/dl (13.5-18.0); LYMPH # 1.8 (1.2-3.4); LYMPH % 40.7 % (20.0-51.0); MEAN CELL VOLUME 89 fl (80.0-100.0); MEAN CORPUSCULAR HEMOGLOBIN 30 pg (27.0-31.0); MEAN CORPUSCULAR HGB CONC 33 g/dl (33.0-37.0); MEAN PLATELET VOLUME 11.8 fl (7.4-10.4); MONO # 0.4 (0.1-0.6); PLATELET COUNT 179 K/mm3 (130-400); RED BLOOD COUNT 3.97 M/mm3 (4.20-5.60); REDCELL DISTRIBUTION WIDTH-CV 12.1 % (11.5-14.5)
[2020-01-20 16:52] LABS: INR 1.1 (0.8-3.0); PROTHROMBIN TIME 12.6 SECONDS (9.7-12.8)
[2020-01-20 16:58] LABS: ALANINE AMINOTRANSFERASE 34 U/L (4-49); ALBUMIN 3.8 gm/dL (3.5-5.0); ALKALINE PHOSPHATASE 99 U/L (50-136); ANION GAP 7 mmol/L (7-16); AST,SGOT 28 U/L (15-37); BILIRUBIN,TOTAL 0.4 mg/dL (0.0-1.0); BLOOD UREA NITROGEN 22 mg/dL (9-20); CALCIUM 8.7 mg/dL (8.4-10.2); CARBON DIOXIDE 28 mmol/L (22-30); CHLORIDE 104 mmol/L (98-107); CREATININE, serum 1.47 (0.66-1.25); GLUCOSE 198 mg/dL (74-106); POTASSIUM 4.1 mmol/L (3.4-5.0); SODIUM 139 mmol/L (137-145); TOTAL PROTEIN 6.3 gm/dL (6.4-8.2)
[2020-01-20 17:11] LABS: TROPONIN-I < 0.012 ng/mL (0.000-0.035)
[2020-01-20 17:15] LABS: PROLACTIN 35.4 ng/mL (3.7-17.9)
[2020-01-20 17:16] LABS: HEMATOCRIT 35.4 % (42.0-52.0)
[2020-01-20] MEDS ORDERED: ARICEPT10 MG PO (17:43)
[2020-01-20] MEDS ORDERED: NEURONTIN300 MG/CAP PO (18:32)
--- NOTE | 2020-01-20 20:00 | NUR ---
Patient to medical room 355 with ER nurse Milka at this time. He transfers from stretcher to bed with SBA and has a steady gait. He has a slightly weaker right hand grasp but does still have some strength in his right side. He has no complaints of pain but does mention a "tickle" in his throat that he has had for a while, which causes him to cough; When he coughs, he gets a headache and has to "squeeze his temples" with both hands to relieve the headache. No skin issues or edema is noted. HR is normal/regular, lungs are clear. Seizure pads are applied to bed rails. Patient is educated on fall precautions and call light system. Will continue to monitor.
[2020-01-20 20:10] LABS: MAGNESIUM 1.9 mg/dL (1.6-2.3); PHOSPHOROUS 3.2 mg/dL (2.5-4.5)
[2020-01-20 20:40] VITALS: BP 151/83; PULSE 57; TEMP 97.5
[2020-01-20 20:42] LABS: TSH w REFLEX 3.3 uIU/mL (0.465-4.680)
[2020-01-21] VITALS (7 sets, daily range): BP systolic 124–149; BP diastolic 62–78; PULSE 55–63; TEMP 97.6–98.4
--- NOTE | 2020-01-21 06:14 | NUR ---
Patient attempted twice to empty bladder with no success. Bladder scan performed and resulted >540 ml of urine retained. Order obtained from [facility] for intermittent cath x1. Straight cath performed and 800 ml of yellow, clear urine was collected. Urine specimen sent to lab.
[2020-01-21 06:36] LABS: COLLECTION METHOD CLEAN CATCH
[2020-01-21 06:48] LABS: MUCOUS Present /lpf; PH 5 (5-8); SQUAMOUS EPITHELIAL None Seen /hpf; URINE APPEARANCE Hazy; URINE BACTERIA Rare /hpf; URINE BILIRUBIN Negative (NEGATIVE); URINE BLOOD Negative (NEGATIVE); URINE COLOR Yellow; URINE GLUCOSE 3+ (NEGATIVE); URINE KETONE Negative (NEGATIVE); URINE LEUKOCYTE ESTERASE Negative (NEGATIVE); URINE NITRATE Negative (NEGATIVE); URINE PROTEIN(semi-quant) 2+ (NEGATIVE); URINE UROBILINOGEN Negative (NEGATIVE)
[2020-01-21 06:50] LABS: CALCIUM 8.7 mg/dL (8.4-10.2); CREATININE, serum 1.3 (0.66-1.25); POTASSIUM 3.7 mmol/L (3.4-5.0)
[2020-01-21 07:04] LABS: PROLACTIN 19.7 ng/mL (3.7-17.9)
--- NOTE | 2020-01-21 08:11 | NUR ---
Lying in bed with eyes open. Requesting morning medications, will administer at this time. i&c technician in room with the patient. Patient denies needs or concerns at this time.
--- NOTE | 2020-01-21 10:14 | NUR ---
Patient having some nausea and would like medication. Spoke with ARVIND Duvall, and she reviews chart and orders phenergan. Pharmacy contacted and they will send up phenergan. Patient updated that we are waiting on pharmacy tobring up the medication. Patient is resting in bed, at bedside. Patient denies feeling like he needs to void and does not feel like his bladder is full. Patient denies additional needs at this time.
--- NOTE | 2020-01-21 10:41 | NUR ---
Pharmacy brought phenergan to this nurse. Phenergan started. Patient continues to have nausea, is aware this medication should help and will also make him sleepy. in room with the patient. Patient says that he has a sensation of feeling numb in his face, has been going on for a while. Denies additional needs at this time.
--- NOTE | 2020-01-21 10:44 | NUR ---
SAM met with the patient and his , Nicolette (ph#[phone]), to discuss discharge plan. The patient lives in [place] with his , daughter (Jenifer), and six grandchildren. Nicolette reports that the patient is independent with ADLs and that he has a walking stick, walker, and rolaider. He also receives home health services from [facility] for OT and nursing home. Nicolette reports that she would like to resume services through [facility] upon discharge and would like ST added, if they have it available. The patient's PCP is Dr. Vinny Owen and he receives his medications at [facility]. Nicolette reports occasional difficulties affording his meds. SAM informed her of [facility]. The patient does not have a DPOA-HC completed, but him and his were interested in obtaining a form for DPOA-HC. SAM provided. SAM contacted Stephan at [facility] to confirm services. Stephan states that they do provide services for the patient and do have ST. They would just need an order for ST. SAM updated the patient and his . The patient and his would like to return home upon discharge and resume services from [facility]. SAM faxed updates to [facility]. SAM to continue to follow.
--- NOTE | 2020-01-21 11:35 | NUR ---
Lying in bed with eyes closed. Open eyes when name called out. Drowsy due to the phenergan. Denies pain, no longer has nausea. Patient denies additional needs at this time.
--- NOTE | 2020-01-21 12:40 | NUR ---
Patient awakens when name called out. Ask if he needs to urinate and he declines. Bladder scan performed and reveals >597mL of urine in bladder. Patient assisted into bathroom by this nurse to see if that would assist in urinating. Patient attempts and unsuccessful. Patient returns to bed, requests to sit on edge and eat lunch. Spoke with Dr. Acosta and orders received for holder placement. Patient requests to wait until he is done eating lunch before getting it inserted. in room with patient and will puch call light when he is done eating.
--- NOTE | 2020-01-21 13:14 | NUR ---
Patient attempted once more to use bathroom and was unsuccessful. Returns to bed. 16fr holder catheter inserted using sterile technique by this nurse. Patient cleaned with three wipes prior to procedure and then with three betadine swabs. Upon insertion of the catheter there was some resistance met, catheter able to advance, clear yellow urine received. Balloon filled with 10ml saline. Pericare provided. Securement device placed to right thigh and catheter secured. Patient tolerates procedure with little difficulty. Patient requests to rest at this time. in room with the patient.
--- NOTE | 2020-01-21 16:02 | NUR ---
Patient lying in bed with eyes closed. Responds when name called out. Patient says that he feels like the phenergan really made him tired and groggy. Denies pain at this time. Has minimal discomfort at tip of penis where catheter inserts. Cosby continues to drain clear yellow urine. Patient denies additional needs or concerns at this time.
--- NOTE | 2020-01-21 21:14 | NUR ---
pt resting in bed, drowsy but easily arousable. alert and oriented, asessment completed and medications given per MAR. heart sounds are regular and normal, lung sounds are clear in all lobes. pt denies pain, shortness of breath and nausea/vomiting. pt stated that he feels numbness in both feet chronically, pulses are equal +2. no other needs at this time, will continue to monitor.
[2020-01-22 04:00] VITALS: BP 138/68; PULSE 58; TEMP 97.9
--- NOTE | 2020-01-22 05:35 | NUR ---
pt sleeping in bed most of the night, denies any pain. called for any needs and assistance to the bathroom. no other needs at this time, will continue to monitor.
[2020-01-22 07:26] VITALS: BP 147/84; PULSE 50; TEMP 98
--- NOTE | 2020-01-22 07:36 | NUR ---
Lying in bed with eyes open. Denies pain or nausea. Says that he slept well last night. EEG was performed this morning. Repositioned patient in bed and assisted to upright sitting position to eat breakfast. Denies additional needs or concerns.
--- NOTE | 2020-01-22 10:43 | NUR ---
Patient says that he enjoyed getting a shower today, feels a little more refreshed. Returns to bed. Denies additional needs or concerns at this time.
--- NOTE | 2020-01-22 10:56 | NUR ---
Patient feels that he is ready to go home. Harjeet liu'd as ordered, urinal provided to the patient. Explain that if he is not able to urinate and feels his bladder is full to let me know. Patient remains resting in bed. Denies additional needs or concerns.
[2020-01-22] MEDS ORDERED: KEPPRA 500MG500 MG PO (11:09)
[2020-01-22 11:13] VITALS: BP 121/76; PULSE 59; TEMP 98
--- NOTE | 2020-01-22 11:14 | NUR ---
SAM attended clinical rounds. The patient is to discharge back home with his and family today, 01/21, with home health services for retirement/PT/OT/ST through [facility]. SAM notified Stephan at [facility] and will fax them d/c orders, once finalized. The patient completed a DPOA-HC. SAM and authorization rep, Candie, witnessed the patient's signature. The patient designated his , Nicolette. SAM provided the patient with the original and some copies. SAM placed a copy in the patient's chart. SAM contacted and updated the patient's . She was in agreement to the plan. No additional needs at this time.
[2020-01-22] MEDS ORDERED: NOVOLIN 70/30 710 ML SQ (11:16)
--- NOTE | 2020-01-22 11:26 | NUR ---
Patient has appt with Dr. Yu at [address] Gomez and he says that the patient may discharge even if he has not been able to urinate and if there are any issues to report to ER or contact PCP.
--- NOTE | 2020-01-22 11:43 | NUR ---
Patient here. Review all discharge instructions with the patient and his . Explain that if he has any issues with urination to contact PCP office or come to ER. Denies questions. ARVIND Alcantara, was also in room and provided instructions and clarification to and patient. signs all discharge paperwork. Discharge packet provided to . Patient assisted out to POV via wheelchair by MONE Bruno.
--- NOTE | 2020-01-22 11:44 | NUR ---
First visit from the vice president of compliance. No needs right now.
== END 2020-01-22 11:46 | disposition home health service (06) ==
LOC: COL.ER 15:57 → MEDICAL 18:13
PROVIDERS: Emergency Medicine; Nurse Practitioner Family; ADMIT Hospitalist
DX: R55 Syncope and collapse (principal); R25.1 Tremor, unspecified; G91.2 (Idiopathic) normal pressure hydrocephalus; I69.351 Hemiplegia and hemiparesis following cerebral infarction affecting right dominant side; I25.10 Atherosclerotic heart disease of native coronary artery without angina pectoris; I25.2 Old myocardial infarction; I12.9 Hypertensive chronic kidney disease with stage 1 through stage 4 chronic kidney disease, or unspecified chronic kidney disease; E11.40 Type 2 diabetes mellitus with diabetic neuropathy, unspecified; E11.42 Type 2 diabetes mellitus with diabetic polyneuropathy; E11.22 Type 2 diabetes mellitus with diabetic chronic kidney disease; N18.9 Chronic kidney disease, unspecified; E78.5 Hyperlipidemia, unspecified; R00.1 Bradycardia, unspecified; E03.9 Hypothyroidism, unspecified; D64.9 Anemia, unspecified; D72.819 Decreased white blood cell count, unspecified; G47.33 Obstructive sleep apnea (adult) (pediatric); F32.9 Major depressive disorder, single episode, unspecified; N40.1 Benign prostatic hyperplasia with lower urinary tract symptoms; R33.8 Other retention of urine; F02.80 Dementia in other diseases classified elsewhere, unspecified severity, without behavioral disturbance, psychotic disturbance, mood disturbance, and anxiety; G20 Parkinson's disease; F17.290 Nicotine dependence, other tobacco product, uncomplicated; Z86.711 Personal history of pulmonary embolism; E66.9 Obesity, unspecified; Z95.818 Presence of other cardiac implants and grafts; Z86.718 Personal history of other venous thrombosis and embolism; Z79.82 Long term (current) use of aspirin; Z91.041 Radiographic dye allergy status; Z79.02 Long term (current) use of antithrombotics/antiplatelets; Z95.828 Presence of other vascular implants and grafts; Z79.4 Long term (current) use of insulin
CPT/HCPCS: J1815; J1953; J2550

== ENCOUNTER → 2020-01-24 | Outpatient (CLI) | payer MEDICARE ==
[~2020-01-24] MED LIST changes: +KEPPRA 500MG500 MG PO
== END ==
LOC: COL.RAD 10:45
DX: R56.9 Unspecified convulsions (principal); Z98.2 Presence of cerebrospinal fluid drainage device; Z86.73 Personal history of transient ischemic attack (TIA), and cerebral infarction without residual deficits

== ENCOUNTER → 2020-08-11 | Outpatient (CLI) | payer MEDICARE ==
[~2020-08-11] MED LIST changes: +INSHUMULIN7030KWIK SQ; +LEXAPRO20 MG PO; +MAG-OX 400400 MG/TAB PO; +MOBIC 7.5MG7.5 MG PO; +NAMENDA 10MG TA10 MG PO; +ZESTRIL 10MG10 MG PO
== END ==
LOC: COL.RAD 13:02
DX: G20 Parkinson's disease (principal); G91.2 (Idiopathic) normal pressure hydrocephalus; G40.409 Other generalized epilepsy and epileptic syndromes, not intractable, without status epilepticus; I63.9 Cerebral infarction, unspecified; G31.84 Mild cognitive impairment of uncertain or unknown etiology; S09.90XS Unspecified injury of head, sequela; J32.0 Chronic maxillary sinusitis

== ENCOUNTER 2020-10-07 15:12 | Emergency (ER) | payer MEDICARE ==
[~2020-10-07] VITALS: Ht 172.7 cm; Wt 102.3 kg
[~2020-10-07 15:12] MED LIST changes: -INSHUMULIN7030KWIK SQ; -LEXAPRO20 MG PO; -MAG-OX 400400 MG/TAB PO; -MOBIC 7.5MG7.5 MG PO; -NAMENDA 10MG TA10 MG PO; -ZESTRIL 10MG10 MG PO
[2020-10-07 15:14] VITALS: TEMP 97.7
[2020-10-07] MEDS ORDERED: MOBIC 7.5MG7.5 MG PO (18:46)
[2020-10-07] MEDS ORDERED: FLEXERIL 1010 MG/TAB PO (18:46)
[2020-10-07 18:55] VITALS: BP 154/84; PULSE 63
[2020-12-17] MEDS ORDERED: IMDUR 30MG30 MG/TAB PO (21:34)
[2020-12-17] MEDS ORDERED: NEURONTIN300 MG/CAP PO (21:35)
[2020-12-17] MEDS ORDERED: MAG-OX 400400 MG/TAB PO (21:35)
[2020-12-17] MEDS ORDERED: KEPPRA 500MG500 MG PO (21:36)
[2020-12-17] MEDS ORDERED: NAMENDA 10MG TA10 MG PO (21:37)
[2020-12-17] MEDS ORDERED: NITROSTAT0.4 MG/TAB SL (21:37)
[2020-12-17] MEDS ORDERED: TOPROL XL 25MG25 MG PO (21:37)
[2020-12-17] MEDS ORDERED: PROTONIX 40MG T40 MG PO (21:38)
[2020-12-17] MEDS ORDERED: LEXAPRO20 MG PO (21:38)
[2020-12-17] MEDS ORDERED: PLAVIX 75MG TAB75 MG PO (21:38)
[2020-12-17] MEDS ORDERED: ZESTRIL 10MG10 MG PO (21:38)
[2020-12-17] MEDS ORDERED: INSHUMULIN7030KWIK SQ (21:44)
[2020-12-20] MEDS ORDERED: LIPITOR 80MG80 MG PO (09:45)
[2020-12-20] MEDS ORDERED: FLOMAX 0.40.4 MG/CAP PO (09:56)
== END 2020-10-07 18:55 | disposition home or self-care (01) ==
LOC: COL.ER 15:12
DX: M54.5 Low back pain (principal); I25.10 Atherosclerotic heart disease of native coronary artery without angina pectoris; E78.5 Hyperlipidemia, unspecified; E11.9 Type 2 diabetes mellitus without complications; F32.9 Major depressive disorder, single episode, unspecified; G40.909 Epilepsy, unspecified, not intractable, without status epilepticus; Z86.73 Personal history of transient ischemic attack (TIA), and cerebral infarction without residual deficits; Z79.4 Long term (current) use of insulin; Z79.899 Other long term (current) drug therapy; Z79.82 Long term (current) use of aspirin; Z79.02 Long term (current) use of antithrombotics/antiplatelets; F17.210 Nicotine dependence, cigarettes, uncomplicated
CPT/HCPCS: J1885

== ENCOUNTER 2021-02-22 05:55 | Observation (INO) | payer MEDICARE ==
[~2021-02-22] VITALS: Ht 170.2 cm; Wt 94.6 kg
[~2021-02-22 05:55] MED LIST changes: +INSHUMULIN7030KWIK SQ; +LEXAPRO20 MG PO; +MAG-OX 400400 MG/TAB PO; +MOBIC 7.5MG7.5 MG PO; +NAMENDA 10MG TA10 MG PO; +ZESTRIL 10MG10 MG PO
[2021-02-22 06:11] LABS: BASO # 0.1 K/mm3 (0.0-0.2); BASO % 1.7 % (0.0-2.0); EOS # 0.4 K/mm3 (0.0-0.7); EOS % 5.9 % (0-4.0); GRAN # 3.5 K/mm3 (1.4-6.5); GRAN % 53.9 % (42.2-75.2); HEMATOCRIT 39.1 % (42.0-52.0); HEMOGLOBIN 13.4 g/dl (13.5-18.0); LYMPH # 1.8 K/mm3 (1.2-3.4); LYMPH % 26.6 % (20.0-51.0); MEAN CELL VOLUME 87 fl (80.0-100.0); MEAN CORPUSCULAR HEMOGLOBIN 30 pg (27.0-31.0); MEAN CORPUSCULAR HGB CONC 34 g/dl (33.0-37.0); MEAN PLATELET VOLUME 11.2 fl (7.4-10.4); MONO # 0.7 K/mm3 (0.1-0.6); MONO % 11.1 % (1.7-9.3); PLATELET COUNT 232 K/mm3 (130-400); REDCELL DISTRIBUTION WIDTH-CV 11.7 % (11.5-14.5)
[2021-02-22 06:19] LABS: PROTHROMBIN TIME 11.5 SECONDS (9.7-12.8)
[2021-02-22 06:21] LABS: PARTIAL THROMBOPLASTIN TIME 27.3 SECONDS (26.0-37.0)
[2021-02-22 06:41] LABS: COLLECTION METHOD CLEAN CATCH
[2021-02-22 06:46] LABS: MUCOUS Present (NOT PRESENT); PH 5 (5-8); SQUAMOUS EPITHELIAL None Seen /hpf (0-10); URINE APPEARANCE Clear (CLEAR/HAZY); URINE BACTERIA None Seen (NONE SEEN); URINE BILIRUBIN Negative (NEGATIVE); URINE BLOOD Negative (NEGATIVE); URINE COLOR Yellow (YELLOW); URINE GLUCOSE 2+ (NEGATIVE); URINE KETONE Trace (NEGATIVE); URINE LEUKOCYTE ESTERASE Negative (NEGATIVE); URINE NITRATE Negative (NEGATIVE); URINE PROTEIN(semi-quant) 2+ (NEGATIVE); URINE RBC 0-2 /hpf (0-2); URINE UROBILINOGEN Negative (NEGATIVE)
[2021-02-22 07:12] LABS: TROPONIN-I < 0.010 ng/mL (0.00-0.033)
[2021-02-22 07:16] LABS: ALANINE AMINOTRANSFERASE 10 U/L (0-55); ALBUMIN 3.6 gm/dL (3.4-4.8); ALKALINE PHOSPHATASE 114 U/L (40-150); ANION GAP 6 mmol/L (7-16); AST,SGOT 19 U/L (5-34); BILIRUBIN,TOTAL 0.6 mg/dL (0.2-1.2); BLOOD UREA NITROGEN 28 mg/dL (8-26); CALCIUM 8.8 mg/dL (8.4-10.2); CARBON DIOXIDE 28 mmol/L (23-31); CHLORIDE 107 mmol/L (98-107); CREATININE, serum 1.87 mg/dL (0.72-1.25); POTASSIUM 4.2 mmol/L (3.5-4.5); SODIUM 141 mmol/L (136-145); TOTAL PROTEIN 6.7 gm/dL (6.2-8.1)
[2021-02-22 07:30] LABS: GLUCOSE 119 mg/dL (70-99)
[2021-02-22 11:06] LABS: CLOSTRIDIUM DIFF A/B NEG; CLOSTRIDIUM DIFF A/B INTERP No C.diff present
[2021-02-22 15:42] VITALS: BP 162/62; PULSE 60; TEMP 98.2
[2021-02-22 20:02] VITALS: BP 157/70; PULSE 79; TEMP 97.9
--- NOTE | 2021-02-22 22:36 | NUR ---
PT IS LAYING IN BED, NO COMPLAINTS OF PAIN. STILL STATES HAS LOOSE STOOLS. THIS RN STATED WILL BRING IN AN IMODIUM TO TRY TO HELP. PT AGREED. ASSESSMENT COMPLETED. PT TOOK ALL MEDICATIONS PRESCRIBED. PT STATED WANTED NEW IV ACCESS DUE TO PUMP BEEPING DUE TO IV LOCATION (IN THE AC). THIS RN WRAPPED IV ACCESS WITH AN HAILEE BANDAGE TO HELP KEEP ELBOW AND IV FROM BEING OBSTRUCTED. PT STATED SATISFACTION WITH THIS. THIS RN TOLD PT TO LET RN KNOW IF IV CONTINUES TO BOTHER HIM, THEN THIS RN WILL CHANGE IV SITE.
[2021-02-23 00:10] VITALS: BP 124/73; PULSE 90; TEMP 98.5
[2021-02-23 04:13] VITALS: BP 154/79; PULSE 70; TEMP 98
--- NOTE | 2021-02-23 06:24 | NUR ---
PT HAD AN UNEVENTFUL NIGHT. DENIES ANY LOOSE STOOLS OVERNIGHT, SLEPT STRAIGHT THROUGH, DENIES CHEST PAIN. CALL LIGHT IN REACH, IV FLUIDS RUNNING AT 125 MLS/HR. IV SITE COVERED IN HAILEE BANDAGE. NO OTHER NEEDS AT THIS TIME.
[2021-02-23 06:47] LABS: BASO # 0.1 K/mm3 (0.0-0.2); BASO % 1.3 % (0.0-2.0); EOS # 0.3 K/mm3 (0.0-0.7); EOS % 5.6 % (0-4.0); GRAN # 2.6 K/mm3 (1.4-6.5); GRAN % 49.1 % (42.2-75.2); HEMATOCRIT 40.8 % (42.0-52.0); HEMOGLOBIN 13.1 g/dl (13.5-18.0); LYMPH # 1.7 K/mm3 (1.2-3.4); LYMPH % 33.2 % (20.0-51.0); MEAN CORPUSCULAR HEMOGLOBIN 30 pg (27.0-31.0); MEAN CORPUSCULAR HGB CONC 32 g/dl (33.0-37.0); MEAN PLATELET VOLUME 11.3 fl (7.4-10.4); MONO # 0.5 K/mm3 (0.1-0.6); MONO % 10.2 % (1.7-9.3); PLATELET COUNT 200 K/mm3 (130-400); RED BLOOD COUNT 4.43 M/mm3 (4.20-5.60); REDCELL DISTRIBUTION WIDTH-CV 11.7 % (11.5-14.5)
[2021-02-23 06:48] LABS: MEAN CELL VOLUME 92 fl (80.0-100.0)
--- NOTE | 2021-02-23 07:00 | NUR ---
Pt. in bed. Telemetry on. States dizziness & nausea. IV in R hand, CDI. Denies and pain at this time.
[2021-02-23 07:11] LABS: TROPONIN-I < 0.010 ng/mL (0.00-0.033)
[2021-02-23 07:23] LABS: ANION GAP 8 mmol/L (7-16); BLOOD UREA NITROGEN 26 mg/dL (8-26); CARBON DIOXIDE 22 mmol/L (23-31); CHLORIDE 109 mmol/L (98-107); CREATININE, serum 1.48 mg/dL (0.72-1.25); GLUCOSE 121 mg/dL (70-99); MAGNESIUM 1.9 mg/dL (1.6-2.6); POTASSIUM 4.1 mmol/L (3.5-4.5); SODIUM 139 mmol/L (136-145)
--- NOTE | 2021-02-23 08:30 | NUR ---
Pt. reports feeling the need to void, unable to void. Bladder scanned >569. Primary nurse notified.
[2021-02-23 08:31] VITALS: BP 129/69; PULSE 74; TEMP 97.8
--- NOTE | 2021-02-23 09:40 | NUR ---
SW met with the patient to discuss discharge plan. The patient lives in [place] with his , Nicolette (ph#[phone]). He reports independence with ADLs and has a walking stick and motorized scooter. The patient's PCP is Dr. Vinny Owen and she receives her medications from [facility]. He reports that he sometimes has difficulties affording his meds. The patient's DPOA-HC is in EMR and it designates his . The patient plans to return home with his upon discharge. The patient has had home health from [facility] in the past. The patient reports that he is no longer receiving services from them and is not interested in getting home health again upon discharge. The patient plans to return home with his upon discharge. SW to follow as needed. *Discharge plan: home with *
[2021-02-23 10:43] VITALS: BP 108/53; PULSE 76; TEMP 97.9
[2021-02-23 16:07] VITALS: BP 135/60; PULSE 54; TEMP 98.1
[2021-02-23 19:30] VITALS: BP 124/56; PULSE 50; TEMP 97.6
--- NOTE | 2021-02-24 04:01 | NUR ---
PT ASSESSMENT COMPLETED. NO OTHER NEEDS AT THIS TIME. DENIES ANY FURTHER LOOSE STOOLS, REQUESTED IMODIUM.
[2021-02-24 04:52] VITALS: BP 124/57; PULSE 52; TEMP 97.9
--- NOTE | 2021-02-24 06:34 | NUR ---
PT HAD UNEVENTFUL NIGHT. SLEPT ALL NIGHT. URINE OUTPUT OF APPROXIMATELY 1300 ML. PT STATED SOME OVERSPILLED ON FLOOR. THIS RN CLEANED UP FLOOR.
[2021-02-24 07:22] LABS: CALCIUM 8.2 mg/dL (8.4-10.2); CREATININE, serum 1.85 mg/dL (0.72-1.25); POTASSIUM 4.2 mmol/L (3.5-4.5)
[2021-02-24 08:17] LABS: BASO # 0.1 K/mm3 (0.0-0.2); BASO % 1.6 % (0.0-2.0); EOS # 0.4 K/mm3 (0.0-0.7); EOS % 7.4 % (0-4.0); GRAN # 2.2 K/mm3 (1.4-6.5); GRAN % 42.9 % (42.2-75.2); HEMATOCRIT 37.6 % (42.0-52.0); HEMOGLOBIN 12.3 g/dl (13.5-18.0); LYMPH # 1.8 K/mm3 (1.2-3.4); LYMPH % 36.7 % (20.0-51.0); MEAN CELL VOLUME 91 fl (80.0-100.0); MEAN CORPUSCULAR HEMOGLOBIN 30 pg (27.0-31.0); MEAN CORPUSCULAR HGB CONC 33 g/dl (33.0-37.0); MEAN PLATELET VOLUME 11.7 fl (7.4-10.4); MONO # 0.5 K/mm3 (0.1-0.6); MONO % 10.6 % (1.7-9.3); PLATELET COUNT 183 K/mm3 (130-400); RED BLOOD COUNT 4.13 M/mm3 (4.20-5.60); REDCELL DISTRIBUTION WIDTH-CV 11.7 % (11.5-14.5)
[2021-02-24 08:34] VITALS: BP 114/54; PULSE 64; TEMP 97.5
[2021-02-24] MEDS ORDERED: RANEXA 500MG T500 MG PO (10:09)
[2021-02-24] MEDS ORDERED: IMDUR 60MG60 MG/TAB PO (10:09)
[2021-02-24] MEDS ORDERED: TOPROL XL 25MG25 MG PO (10:10)
--- NOTE | 2021-02-24 11:04 | NUR ---
The clinical team is ready to discharge the patient today. PT/OT are recommending home health. SAM contacted the patient's , Nicolette, to update. Nicolette reports that they would be interested in home health and is okay with going through [facility] again. SAM contacted and faxed a referral to Margarette at [facility]. Awaiting screen.
--- NOTE | 2021-02-24 13:08 | NUR ---
Margarette, at [facility], reports that they are good to accept the patient and that they will be reaching out to the patient and his to set up a time to go see him. The patient discharged back home with his today, 02/24, with home health services for fci/PT/OT from [facility]. No additional needs at this time.
== END 2021-02-24 12:48 | disposition home or self-care (01) ==
LOC: COL.ER 05:55 → MEDICAL 08:25
PROVIDERS: Emergency Medicine; Internal Medicine; Physician Assistant; ADMIT Internal Medicine
DX: A08.11 Acute gastroenteropathy due to Norwalk agent (principal); R07.9 Chest pain, unspecified; I25.2 Old myocardial infarction; I25.10 Atherosclerotic heart disease of native coronary artery without angina pectoris; E11.22 Type 2 diabetes mellitus with diabetic chronic kidney disease; E11.40 Type 2 diabetes mellitus with diabetic neuropathy, unspecified; I12.9 Hypertensive chronic kidney disease with stage 1 through stage 4 chronic kidney disease, or unspecified chronic kidney disease; N18.9 Chronic kidney disease, unspecified; Z20.822 Contact with and (suspected) exposure to COVID-19; G91.2 (Idiopathic) normal pressure hydrocephalus; E78.5 Hyperlipidemia, unspecified; R00.1 Bradycardia, unspecified; G40.909 Epilepsy, unspecified, not intractable, without status epilepticus; F32.A Depression, unspecified; G20 Parkinson's disease; F02.80 Dementia in other diseases classified elsewhere, unspecified severity, without behavioral disturbance, psychotic disturbance, mood disturbance, and anxiety; N40.0 Benign prostatic hyperplasia without lower urinary tract symptoms; F17.290 Nicotine dependence, other tobacco product, uncomplicated; Z79.4 Long term (current) use of insulin; Z79.02 Long term (current) use of antithrombotics/antiplatelets; Z79.899 Other long term (current) drug therapy; Z86.711 Personal history of pulmonary embolism; Z86.718 Personal history of other venous thrombosis and embolism; Z95.818 Presence of other cardiac implants and grafts; Z98.2 Presence of cerebrospinal fluid drainage device; Z79.82 Long term (current) use of aspirin
CPT/HCPCS: G0378; J1644; J1815; J2405

== ENCOUNTER 2021-06-18 17:47 | Emergency (ER) | payer MEDICARE ==
[~2021-06-18] VITALS: Ht 172.7 cm; Wt 103.2 kg
[~2021-06-18 17:47] MED LIST changes: +RANEXA 500MG T500 MG PO
[2021-06-18 17:54] VITALS: TEMP 97
[2021-06-18 18:17] LABS: BASO # 0.1 K/mm3 (0.0-0.2); BASO % 1.9 % (0.0-2.0); EOS # 0.6 K/mm3 (0.0-0.7); EOS % 10.1 % (0.0-4.0); GRAN # 2.9 K/mm3 (1.4-6.5); GRAN % 50.8 % (42.2-75.2); HEMOGLOBIN 11.6 g/dl (13.5-18.0); LYMPH # 1.7 K/mm3 (1.2-3.4); LYMPH % 29.9 % (20.0-51.0); MEAN CELL VOLUME 88 fl (80.0-100.0); MEAN CORPUSCULAR HEMOGLOBIN 29 pg (27-31); MEAN CORPUSCULAR HGB CONC 34 g/dl (33.0-37.0); MEAN PLATELET VOLUME 11.7 fl (7.4-10.4); MONO # 0.4 K/mm3 (0.1-0.6); MONO % 6.9 % (1.7-9.3); PLATELET COUNT 239 K/mm3 (130-400); RED BLOOD COUNT 3.94 M/mm3 (4.20-5.60); REDCELL DISTRIBUTION WIDTH-CV 11.9 % (11.5-14.5)
[2021-06-18 18:19] LABS: HEMATOCRIT 34.5 % (42.0-52.0)
[2021-06-18 18:24] LABS: INR 1.1 (0.8-3.0); PROTHROMBIN TIME 12.6 SECONDS (9.7-12.8)
[2021-06-18] MEDS ORDERED: APRESOLINE 25MG25 MG PO (18:35)
[2021-06-18] MEDS ORDERED: ZETIA 10MG TAB10 MG PO (18:35)
[2021-06-18 18:36] LABS: ALBUMIN 3.4 gm/dL (3.4-4.8); BILIRUBIN,TOTAL 0.4 mg/dL (0.2-1.2); CALCIUM 8.5 mg/dL (8.4-10.2); CREATININE, serum 2.1 mg/dL (0.72-1.25); POTASSIUM 4.5 mmol/L (3.5-4.5); TOTAL PROTEIN 6.5 gm/dL (6.2-8.1)
[2021-06-18] MEDS ORDERED: NORVASC 10MG10 MG PO (18:36)
[2021-06-18] MEDS ORDERED: PROSCAR 5MG5 MG PO (18:36)
[2021-06-18] MEDS ORDERED: ZOFRAN INJ4 MG/2 ML PO (18:37)
[2021-06-18] MEDS ORDERED: TUMS500 MG (18:38)
[2021-06-18 19:22] VITALS: BP 120/69; PULSE 46
== END 2021-06-18 19:41 | disposition home or self-care (01) ==
LOC: COL.ER 17:47
PROVIDERS: Physician Assistant
DX: I25.10 Atherosclerotic heart disease of native coronary artery without angina pectoris (principal); E11.22 Type 2 diabetes mellitus with diabetic chronic kidney disease; N18.9 Chronic kidney disease, unspecified; Z98.61 Coronary angioplasty status; Z79.82 Long term (current) use of aspirin; Z79.02 Long term (current) use of antithrombotics/antiplatelets

== ENCOUNTER → 2021-08-20 | Outpatient (CLI) | payer MEDICARE ==
[~2021-08-20] MED LIST changes: +APRESOLINE 25MG25 MG PO; +NORVASC 10MG10 MG PO; +PROSCAR 5MG5 MG PO; +TUMS500 MG; +ZETIA 10MG TAB10 MG PO; +ZOFRAN INJ4 MG/2 ML PO
== END ==
LOC: COL.RAD 07:30
DX: M47.812 Spondylosis without myelopathy or radiculopathy, cervical region (principal); G20 Parkinson's disease; G91.2 (Idiopathic) normal pressure hydrocephalus; G40.409 Other generalized epilepsy and epileptic syndromes, not intractable, without status epilepticus; I63.9 Cerebral infarction, unspecified; G44.86 Cervicogenic headache; I65.22 Occlusion and stenosis of left carotid artery; M43.22 Fusion of spine, cervical region; R29.6 Repeated falls

== ENCOUNTER 2021-09-14 19:34 | Emergency (ER) | payer MEDICARE ==
[~2021-09-14] VITALS: Ht 170.2 cm; Wt 103.6 kg
[2021-09-14 19:36] VITALS: TEMP 97.9
[2021-09-15 02:33] VITALS: BP 128/65; PULSE 56
== END 2021-09-15 02:35 | disposition short-term general hospital (02) ==
LOC: COL.ER 19:34
DX: T85.01XA Breakdown (mechanical) of ventricular intracranial (communicating) shunt, initial encounter (principal); F17.210 Nicotine dependence, cigarettes, uncomplicated; Z20.822 Contact with and (suspected) exposure to COVID-19; Z79.82 Long term (current) use of aspirin; Z79.02 Long term (current) use of antithrombotics/antiplatelets
CPT/HCPCS: J1170; J2270

== ENCOUNTER 2021-09-28 19:03 | Emergency (ER) | payer MEDICARE ==
[~2021-09-28] VITALS: Ht 170.2 cm; Wt 104.5 kg
[2021-09-28 19:04] VITALS: TEMP 98.1
[2021-09-28 19:48] LABS: BASO # 0.1 K/mm3 (0.0-0.2); BASO % 1.5 % (0.0-2.0); EOS # 0.4 K/mm3 (0.0-0.7); EOS % 6.4 % (0.0-4.0); GRAN # 3.5 K/mm3 (1.4-6.5); GRAN % 50.5 % (42.2-75.2); HEMOGLOBIN 12.7 g/dl (13.5-18.0); LYMPH # 2.2 K/mm3 (1.2-3.4); LYMPH % 31.7 % (20.0-51.0); MEAN CELL VOLUME 92 fl (80.0-100.0); MEAN CORPUSCULAR HEMOGLOBIN 30 pg (27-31); MEAN CORPUSCULAR HGB CONC 33 g/dl (33.0-37.0); MEAN PLATELET VOLUME 11.3 fl (7.4-10.4); MONO # 0.6 K/mm3 (0.1-0.6); MONO % 9.2 % (1.7-9.3); PLATELET COUNT 244 K/mm3 (130-400); RED BLOOD COUNT 4.24 M/mm3 (4.20-5.60); REDCELL DISTRIBUTION WIDTH-CV 12.5 % (11.5-14.5)
[2021-09-28 19:54] LABS: INR 1.1 (0.8-3.0); PROTHROMBIN TIME 12.7 SECONDS (9.7-12.8)
[2021-09-28 19:57] LABS: PARTIAL THROMBOPLASTIN TIME 32.4 SECONDS (26.0-37.0)
[2021-09-28 20:11] LABS: ALANINE AMINOTRANSFERASE 8 U/L (0-55); ALBUMIN 3.5 gm/dL (3.4-4.8); ALKALINE PHOSPHATASE 78 U/L (40-150); ANION GAP 12 mmol/L (7-16); AST,SGOT 12 U/L (5-34); BILIRUBIN,TOTAL 0.3 mg/dL (0.2-1.2); BLOOD UREA NITROGEN 25 mg/dL (8-26); CALCIUM 8.8 mg/dL (8.4-10.2); CARBON DIOXIDE 23 mmol/L (23-31); CHLORIDE 107 mmol/L (98-107); CREATININE, serum 1.88 mg/dL (0.72-1.25); GLUCOSE 96 mg/dL (70-99); SODIUM 142 mmol/L (136-145); TOTAL PROTEIN 6.7 gm/dL (6.2-8.1)
[2021-09-28 20:12] LABS: ALCOHOL(ethanol),MEDICAL < 10 mg/dL (0-10)
[2021-09-28 20:18] LABS: TROPONIN-I 0.017 ng/mL (0.00-0.033)
[2021-09-28 23:05] VITALS: BP 176/84; PULSE 51
== END 2021-09-28 23:05 | disposition home or self-care (01) ==
LOC: COL.ER 19:03
PROVIDERS: Emergency Medicine
DX: E11.649 Type 2 diabetes mellitus with hypoglycemia without coma (principal); R41.0 Disorientation, unspecified; Z79.4 Long term (current) use of insulin
CPT/HCPCS: J2270; J2765; J7030; Q9967

== ENCOUNTER 2021-10-10 07:55 | Observation (INO) | payer MEDICARE ==
[~2021-10-10] VITALS: Ht 170.2 cm; Wt 99.6 kg
[2021-10-10 08:47] LABS: BASO # 0.1 K/mm3 (0.0-0.2); BASO % 1.4 % (0.0-2.0); EOS # 0.6 K/mm3 (0.0-0.7); EOS % 8.7 % (0.0-4.0); GRAN # 2.6 K/mm3 (1.4-6.5); GRAN % 41.5 % (42.2-75.2); HEMATOCRIT 38.5 % (42.0-52.0); HEMOGLOBIN 12.8 g/dl (13.5-18.0); LYMPH # 2.4 K/mm3 (1.2-3.4); MEAN CELL VOLUME 91 fl (80.0-100.0); MEAN CORPUSCULAR HEMOGLOBIN 30 pg (27-31); MEAN CORPUSCULAR HGB CONC 33 g/dl (33.0-37.0); MEAN PLATELET VOLUME 11.6 fl (7.4-10.4); MONO # 0.6 K/mm3 (0.1-0.6); MONO % 9.4 % (1.7-9.3); PLATELET COUNT 215 K/mm3 (130-400); RED BLOOD COUNT 4.23 M/mm3 (4.20-5.60); REDCELL DISTRIBUTION WIDTH-CV 12.4 % (11.5-14.5)
[2021-10-10] MEDS ORDERED: ZOFRAN 4MG T4 MG/TAB PO (09:08)
[2021-10-10 09:10] LABS: ALBUMIN 3.4 gm/dL (3.4-4.8); BILIRUBIN,TOTAL 0.3 mg/dL (0.2-1.2); CALCIUM 8.7 mg/dL (8.4-10.2); CREATININE, serum 1.72 mg/dL (0.72-1.25); POTASSIUM 4.7 mmol/L (3.5-4.5); TOTAL PROTEIN 6.6 gm/dL (6.2-8.1)
[2021-10-10 09:17] LABS: TROPONIN-I 0.031 ng/mL (0.00-0.033)
--- NOTE | 2021-10-10 12:40 | NUR ---
Patient to room 319 from the ED. A&Ox3. VSS. IV CDI. Denies pain and discomfort. Nurse oriented the patient to location, room and call light. Patient stating that he is tired. No further needs expressed. Call light within reach. Bed alarm on
[2021-10-10 14:19] LABS: PARTIAL THROMBOPLASTIN TIME 32.2 SECONDS (26.0-37.0)
[2021-10-10 15:47] VITALS: BP 122/66; PULSE 50
[2021-10-10 20:00] VITALS: BP 165/69; PULSE 52; TEMP 97.8
[2021-10-11] VITALS (411 sets, daily range): BP systolic 110–178; BP diastolic 64–84; PULSE 49–64; TEMP 37.8; O2SAT 62–99
[2021-10-11 06:59] LABS: BASO # 0.1 K/mm3 (0.0-0.2); BASO % 1.6 % (0.0-2.0); EOS # 0.5 K/mm3 (0.0-0.7); EOS % 8.7 % (0.0-4.0); GRAN # 2.9 K/mm3 (1.4-6.5); GRAN % 47.1 % (42.2-75.2); HEMATOCRIT 37.8 % (42.0-52.0); HEMOGLOBIN 12.8 g/dl (13.5-18.0); LYMPH % 32.9 % (20.0-51.0); MEAN CELL VOLUME 89 fl (80.0-100.0); MEAN CORPUSCULAR HEMOGLOBIN 30 pg (27-31); MEAN CORPUSCULAR HGB CONC 34 g/dl (33.0-37.0); MEAN PLATELET VOLUME 11.3 fl (7.4-10.4); MONO # 0.5 K/mm3 (0.1-0.6); MONO % 8.9 % (1.7-9.3); PLATELET COUNT 171 K/mm3 (130-400); RED BLOOD COUNT 4.23 M/mm3 (4.20-5.60); REDCELL DISTRIBUTION WIDTH-CV 12.3 % (11.5-14.5)
[2021-10-11 07:20] LABS: CALCIUM 8.7 mg/dL (8.4-10.2); CREATININE, serum 1.57 mg/dL (0.72-1.25); POTASSIUM 4.2 mmol/L (3.5-4.5)
--- NOTE | 2021-10-11 08:00 | NUR ---
Pt sitting down in bed A&O x4 remains NPO for procedure. No pain. Peripheral line on right forearm. Fluids infusing. No redness or edema. Call light within reach.
--- NOTE | 2021-10-11 09:25 | NUR ---
Initial visit; Very polite gentleman thanked Blower Room Attendant for looking in on him and offering God's blessings and to keep him in her prayers.
--- NOTE | 2021-10-11 12:13 | NUR ---
See merge for allmedication, assessment, intervention, and vital sign times.
--- NOTE | 2021-10-11 18:43 | NUR ---
PT BROUGHT TO ICU FROM [facility] VIA BED AT 1300. PT WAS DROWSY BUT ABLE TO ANSWER QUESTIONS AT THAT TIME. TWO CATH SITES NOTED, ONE TO R FEMORAL ARTERY AND ONE TO R RADIAL ARTER. TR BAND IN PLACE TO R WRIST, HAS BEEN DEFLATED TO 3ML OF AIR. ANGIO SEAL DRESSING IN PLACE TO R GROIN, NO BLEEDING, SWELLING, HEMATOMA NOTED. VITAL SIGNS HAVE STAYED STABLE THIS AFTERNOON. PT HAS EATEN AND DRANK WATER WITHOUT NAUSEA. CALL LIGHT IN REACH, PT UTILIZES FOR NEEDS.
[2021-10-12] VITALS (233 sets, daily range): BP systolic 118–179; BP diastolic 54–78; PULSE 52–62; TEMP 97.9–981; O2SAT 33–100
--- NOTE | 2021-10-12 03:15 | NUR ---
PATIENT IS RESTLESS AND ANXIOUS STATES I CANNOT CATCH MY BREATH SATS 99% PULSE 104, BREATHS 30, MEDS ADMINISTERED.
[2021-10-12 04:54] LABS: BASO % 0.3 % (0.0-2.0); EOS % 0.1 % (0.0-4.0); GRAN # 7.1 K/mm3 (1.4-6.5); GRAN % 81.9 % (42.2-75.2); HEMOGLOBIN 12.5 g/dl (13.5-18.0); LYMPH # 1.1 K/mm3 (1.2-3.4); LYMPH % 13.1 % (20.0-51.0); MEAN CELL VOLUME 88 fl (80.0-100.0); MEAN CORPUSCULAR HEMOGLOBIN 30 pg (27-31); MEAN CORPUSCULAR HGB CONC 34 g/dl (33.0-37.0); MEAN PLATELET VOLUME 11.4 fl (7.4-10.4); MONO # 0.4 K/mm3 (0.1-0.6); MONO % 4.1 % (1.7-9.3); PLATELET COUNT 182 K/mm3 (130-400); RED BLOOD COUNT 4.14 M/mm3 (4.20-5.60); REDCELL DISTRIBUTION WIDTH-CV 12.1 % (11.5-14.5)
[2021-10-12 04:57] LABS: HEMATOCRIT 36.6 % (42.0-52.0)
[2021-10-12 05:11] LABS: CALCIUM 8.5 mg/dL (8.4-10.2); CREATININE, serum 1.78 mg/dL (0.72-1.25); POTASSIUM 4.8 mmol/L (3.5-4.5)
--- NOTE | 2021-10-12 08:00 | NUR ---
SHIFT REPORT RECEIVED. PT REPORTS NO CURRENT PAIN WEAKNESSOR DIZZINESS.
--- NOTE | 2021-10-12 09:06 | NUR ---
Follow-up visit; Patient thanked Kelp Or Seagrass Gatherer for keeping him in her prayers and offering God's blessings.
--- NOTE | 2021-10-12 10:22 | NUR ---
sheet metal worker maintenance met with patient to complete intake and discuss discharge plan. Patient states that he lives at home with his Nicolette ([phone]). Patient reports to being fully independent with his ADL's and utilizes a cane,walker and walking stick for ambulation. Patient has no home oxygen needs. PCP is Dr. Owen and he utilizes [facility] for prescriptions. States that he does have trouble affording his medications stating ( one is $93 dollars and i can't do that". He isn't sure of which medication it is. Patient states that he does not have a DPOA-HC established but that he is in the process of talking with his PCP and getting that along with advanced directives established. Patient is planning on returning home once medically ready. Patient asked if he has ever applied for KENNEDI, which he verbalizes he hasn't. He states he didn't know he could since he has MCR for disability. SW informed the patient that i will reach out to our financial counselor to meet with him to see if he qualifies.
[2021-10-12] MEDS ORDERED: APRESOLINE 25MG25 MG PO (14:33)
[2021-10-12] MEDS ORDERED: RANEXA 500MG T500 MG PO (14:33)
[2021-10-12] MEDS ORDERED: IMDUR 30MG30 MG/TAB PO (14:34)
--- NOTE | 2021-10-12 15:00 | NUR ---
Heparin drip discontinued at this time due to patient discharge and VQ scan results.
--- NOTE | 2021-10-12 15:34 | NUR ---
SAM notified by patient's RN that he is getting ready to discharge and is asking questions about his insurance. SAM met with patient who again, asks about KENNEDI. SAM provided the patient the Neighborhoods. Resource List and highlighted the [facility] on Aging and the local [facility] office. Instructed the patient that if he does not hear from our financial counselor, then to reach out to one of those agencies.
--- NOTE | 2021-10-12 15:38 | NUR ---
food service worker notified by the patient's Rn that the patient is asking about his insurance. SW met with patient and notified him that if he doesn't hear from our financial counselor tomorrow then to reach out to the [facility] on Aging and the local [facility] office. Patient is provided the [employer] resource Guide and highlighted the two agencies.
--- NOTE | 2021-10-12 16:00 | NUR ---
PT DISCHARGED IN STABLE CONDITION. TAKEN TO ED WAITING ROOM BY THIS RN VIA WHEELCHAIR WITH NO COMPLICATIONS.
== END 2021-10-12 16:08 | disposition home or self-care (01) ==
LOC: COL.ER 07:55 → ICU 10:02 → MEDICAL 10:02 → ICU 10-11 12:56
PROVIDERS: Emergency Medicine; ADMIT Family Medicine
DX: R07.9 Chest pain, unspecified (principal); I25.10 Atherosclerotic heart disease of native coronary artery without angina pectoris; I25.2 Old myocardial infarction; K21.9 Gastro-esophageal reflux disease without esophagitis; R79.89 Other specified abnormal findings of blood chemistry; I13.0 Hypertensive heart and chronic kidney disease with heart failure and stage 1 through stage 4 chronic kidney disease, or unspecified chronic kidney disease; E11.22 Type 2 diabetes mellitus with diabetic chronic kidney disease; N18.9 Chronic kidney disease, unspecified; I50.30 Unspecified diastolic (congestive) heart failure; G20 Parkinson's disease; F02.80 Dementia in other diseases classified elsewhere, unspecified severity, without behavioral disturbance, psychotic disturbance, mood disturbance, and anxiety; G91.2 (Idiopathic) normal pressure hydrocephalus; E78.5 Hyperlipidemia, unspecified; E03.9 Hypothyroidism, unspecified; N40.0 Benign prostatic hyperplasia without lower urinary tract symptoms; G40.909 Epilepsy, unspecified, not intractable, without status epilepticus; R00.1 Bradycardia, unspecified; F17.290 Nicotine dependence, other tobacco product, uncomplicated; Z79.82 Long term (current) use of aspirin; Z79.899 Other long term (current) drug therapy; Z95.5 Presence of coronary angioplasty implant and graft; Z98.2 Presence of cerebrospinal fluid drainage device; Z79.01 Long term (current) use of anticoagulants; Z86.79 Personal history of other diseases of the circulatory system; Z91.041 Radiographic dye allergy status; Z86.718 Personal history of other venous thrombosis and embolism; Z86.711 Personal history of pulmonary embolism; Z79.4 Long term (current) use of insulin
CPT/HCPCS: 99233-AI; 99239; A9540; A9567; C1760; C1769; C1894; G0378; J1200; J1644; J1815; J2250; J2405; J2930; J3010

== ENCOUNTER 2021-11-19 18:45 | Emergency (ER) | payer MEDICARE ==
[~2021-11-19] VITALS: Ht 170.2 cm; Wt 102.3 kg
[2021-11-19 18:52] VITALS: TEMP 97
[2021-11-19 19:13] LABS: BASO # 0.1 K/mm3 (0.0-0.2); BASO % 1.4 % (0.0-2.0); EOS # 0.9 K/mm3 (0.0-0.7); EOS % 13.1 % (0.0-4.0); GRAN # 2.8 K/mm3 (1.4-6.5); GRAN % 38.4 % (42.2-75.2); HEMATOCRIT 38.8 % (42.0-52.0); HEMOGLOBIN 13.2 g/dl (13.5-18.0); LYMPH # 2.6 K/mm3 (1.2-3.4); LYMPH % 36.5 % (20.0-51.0); MEAN CELL VOLUME 90 fl (80.0-100.0); MEAN CORPUSCULAR HEMOGLOBIN 31 pg (27-31); MEAN CORPUSCULAR HGB CONC 34 g/dl (33.0-37.0); MEAN PLATELET VOLUME 10.9 fl (7.4-10.4); MONO # 0.7 K/mm3 (0.1-0.6); MONO % 9.9 % (1.7-9.3); PLATELET COUNT 206 K/mm3 (130-400); RED BLOOD COUNT 4.32 M/mm3 (4.20-5.60); REDCELL DISTRIBUTION WIDTH-CV 11.9 % (11.5-14.5)
[2021-11-19 19:37] LABS: ALBUMIN 3.6 gm/dL (3.4-4.8); BILIRUBIN,TOTAL 0.4 mg/dL (0.2-1.2); C-REACTIVE PROTEIN 0.16 mg/dL (0.00-0.50); CALCIUM 8.9 mg/dL (8.4-10.2); CREATININE, serum 2.07 mg/dL (0.72-1.25); POTASSIUM 4.5 mmol/L (3.5-4.5); TOTAL PROTEIN 6.5 gm/dL (6.2-8.1)
[2021-11-19] MEDS ORDERED: NORCO 325 MG-51 TAB PO (21:55)
[2021-11-19 21:57] VITALS: BP 126/71; PULSE 61
== END 2021-11-19 22:18 | disposition home or self-care (01) ==
LOC: COL.ER 18:45
PROVIDERS: Family Medicine
DX: R10.32 Left lower quadrant pain (principal); Z87.891 Personal history of nicotine dependence; M54.50 Low back pain, unspecified
CPT/HCPCS: J1170; J2405; J7120

== ENCOUNTER → 2022-05-26 | Outpatient (CLI) | payer MEDICARE ==
[~2022-05-26] MED LIST changes: +COZAAR 25MG25 MG/TAB PO; +KEPPRA1000 MG PO; +MELATONIN5 M1 SL; +NORCO 325 MG-51 TAB PO
== END ==
LOC: COL.RAD 07:26
DX: G20 Parkinson's disease (principal)

== ENCOUNTER 2022-06-09 10:11 | Emergency (ER) | payer MEDICARE ==
[~2022-06-09] VITALS: Ht 170.2 cm; Wt 100.9 kg
[2022-06-09 10:17] VITALS: TEMP 96.2
[2022-06-09 10:37] LABS: BASO # 0.1 K/mm3 (0.0-0.2); EOS # 0.4 K/mm3 (0.0-0.7); EOS % 4.5 % (0.0-4.0); GRAN # 4.7 K/mm3 (1.4-6.5); GRAN % 59.5 % (42.2-75.2); HEMATOCRIT 38.5 % (42.0-52.0); HEMOGLOBIN 13.2 g/dl (13.5-18.0); LYMPH # 1.9 K/mm3 (1.2-3.4); LYMPH % 23.9 % (20.0-51.0); MEAN CELL VOLUME 88 fl (80.0-100.0); MEAN CORPUSCULAR HEMOGLOBIN 30 pg (27-31); MEAN CORPUSCULAR HGB CONC 34 g/dl (33.0-37.0); MEAN PLATELET VOLUME 11.8 fl (7.4-10.4); MONO # 0.8 K/mm3 (0.1-0.6); MONO % 10.6 % (1.7-9.3); PLATELET COUNT 211 K/mm3 (130-400); RED BLOOD COUNT 4.39 M/mm3 (4.20-5.60); REDCELL DISTRIBUTION WIDTH-CV 12.1 % (11.5-14.5)
[2022-06-09 10:44] LABS: PROTHROMBIN TIME 11.9 SECONDS (9.7-12.8)
[2022-06-09 10:57] LABS: ALBUMIN 3.5 gm/dL (3.4-4.8); BILIRUBIN,TOTAL 0.5 mg/dL (0.2-1.2); CALCIUM 8.8 mg/dL (8.4-10.2); CREATININE, serum 1.94 mg/dL (0.72-1.25); POTASSIUM 4.6 mmol/L (3.5-4.5); TOTAL PROTEIN 6.4 gm/dL (6.2-8.1)
[2022-06-09 11:03] LABS: TROPONIN-I 0.03 ng/mL (0.00-0.033)
[2022-06-09 11:56] LABS: COLLECTION METHOD CLEAN CATCH
[2022-06-09 12:23] LABS: SQUAMOUS EPITHELIAL None Seen /hpf (0-10); URINE BACTERIA Rare /hpf (NONE SEEN); URINE RBC 0-2 /hpf (0-2)
[2022-06-09 12:24] LABS: URINE APPEARANCE Clear (CLEAR/HAZY); URINE BLOOD TRACE-INTACT (NEGATIVE); URINE COLOR Yellow (YELLOW); URINE GLUCOSE 2+ (NEGATIVE); URINE KETONE Negative (NEGATIVE); URINE NITRATE Negative (NEGATIVE); URINE PROTEIN(semi-quant) 3+ (NEGATIVE); URINE UROBILINOGEN 0.2 E.U/dL (0.2-1.0)
[2022-06-09 13:12] VITALS: BP 177/92; PULSE 59
== END 2022-06-09 13:12 | disposition home or self-care (01) ==
LOC: COL.ER 10:11
PROVIDERS: Nurse Practitioner
DX: R53.1 Weakness (principal); E11.22 Type 2 diabetes mellitus with diabetic chronic kidney disease; I12.9 Hypertensive chronic kidney disease with stage 1 through stage 4 chronic kidney disease, or unspecified chronic kidney disease; N18.9 Chronic kidney disease, unspecified; Z79.4 Long term (current) use of insulin; Z86.73 Personal history of transient ischemic attack (TIA), and cerebral infarction without residual deficits; Z79.01 Long term (current) use of anticoagulants
CPT/HCPCS: J1815; J7030

== ENCOUNTER 2022-06-22 09:00 | Outpatient (RCR) | payer MEDICARE | END 2022-06-24 | disposition home or self-care (01) | LOC: MKS.ESL.PT | DX: R13.12 Dysphagia, oropharyngeal phase (principal); R49.0 Dysphonia; R47.1 Dysarthria and anarthria; G20 Parkinson's disease; R42 Dizziness and giddiness; G47.00 Insomnia, unspecified; R44.3 Hallucinations, unspecified; R29.6 Repeated falls ==

== ENCOUNTER 2022-07-20 10:30 | Outpatient (RCR) | payer MEDICARE | END 2022-07-24 | disposition home or self-care (01) | LOC: MKS.ESL.PT | DX: G20 Parkinson's disease (principal); R29.6 Repeated falls; R42 Dizziness and giddiness; G47.00 Insomnia, unspecified; R44.3 Hallucinations, unspecified; R49.0 Dysphonia; R78.2 Finding of cocaine in blood; R13.10 Dysphagia, unspecified ==

== ENCOUNTER 2023-01-12 21:16 | Observation (INO) | payer MEDICARE ==
[~2023-01-12] VITALS: Ht 170.2 cm; Wt 100.9 kg
[~2023-01-12 21:16] MED LIST changes: +ARICEPT 5MG PO; +CALCIUM CARBON500 M1 PO; +COMBIRESP IH; +FIORICET 325 MG1 TA1 PO; +ISOSORBIDE MON120 MG PO; +KERENDIA10 MG PO; +MELATONIN ER10 MG PO; -MELATONIN5 M1 SL; +NOVOLOGMIX70/30 SQ; +PEPTO BISM262 MG/15 PO; +PEPTO BISMOL262 MG PO; +RANEXA1000 MG PO; +SYMMETREL100 MG PO; +VESICARE 5MG5 MG PO
[2023-01-12 22:06] LABS: BASO # 0.1 K/mm3 (0.0-0.2); BASO % 0.9 % (0.0-2.0); EOS # 0.3 K/mm3 (0.0-0.7); EOS % 2.4 % (0.0-4.0); GRAN # 7.9 K/mm3 (1.4-6.5); GRAN % 71.4 % (42.2-75.2); HEMOGLOBIN 11.9 g/dl (13.5-18.0); LYMPH # 2.1 K/mm3 (1.2-3.4); LYMPH % 18.9 % (20.0-51.0); MEAN CELL VOLUME 88 fl (80.0-100.0); MEAN CORPUSCULAR HEMOGLOBIN 29 pg (27-31); MEAN CORPUSCULAR HGB CONC 33 g/dl (33.0-37.0); MEAN PLATELET VOLUME 11.7 fl (7.4-10.4); MONO # 0.7 K/mm3 (0.1-0.6); MONO % 6.1 % (1.7-9.3); PLATELET COUNT 190 K/mm3 (130-400); REDCELL DISTRIBUTION WIDTH-CV 12.3 % (11.5-14.5)
[2023-01-12 22:12] LABS: INR 1.1 (0.8-3.0); PROTHROMBIN TIME 11.6 SECONDS (9.7-12.8)
[2023-01-12 22:14] LABS: PARTIAL THROMBOPLASTIN TIME 29.7 SECONDS (26.0-37.0)
[2023-01-12 22:23] LABS: ALBUMIN 3.1 gm/dL (3.4-4.8); BILIRUBIN,TOTAL 0.5 mg/dL (0.2-1.2); CALCIUM 8.2 mg/dL (8.4-10.2); CREATININE, serum 2.32 mg/dL (0.72-1.25); TOTAL PROTEIN 5.5 gm/dL (6.2-8.1)
[2023-01-12 22:37] LABS: TROPONIN-I 1.423 ng/mL (0.00-0.033)
[2023-01-13] VITALS (12 sets, daily range): BP systolic 127–167; BP diastolic 59–75; PULSE 51–64; TEMP 97.4–98.2
[2023-01-13] MEDS ORDERED: IMDUR 30MG30 MG/TAB PO (04:44)
[2023-01-13 04:47] LABS: COLLECTION METHOD CLEAN CATCH
[2023-01-13] MEDS ORDERED: NOVOLIN 70100 UNIT/2 SQ (04:50)
[2023-01-13] MEDS ORDERED: PROTONIX 40MG T40 MG PO (04:54)
[2023-01-13] MEDS ORDERED: VESICARE 5MG5 MG PO (04:55)
[2023-01-13] MEDS ORDERED: PROSCAR 5MG5 MG PO (04:55)
--- NOTE | 2023-01-13 05:00 | NUR ---
Med rec completed to best of this nurse's ability, based off of medication claim history. Patient unable to name any medications. Stated his would know, but requesting that she not be called at this hour.
[2023-01-13 05:04] LABS: URINE APPEARANCE Clear (CLEAR/HAZY); URINE BLOOD Negative (NEGATIVE); URINE COLOR Yellow (YELLOW); URINE GLUCOSE 1+ (NEGATIVE); URINE KETONE Negative (NEGATIVE); URINE NITRATE Negative (NEGATIVE); URINE PROTEIN(semi-quant) 3+ (NEGATIVE); URINE UROBILINOGEN 0.2 E.U/dL (0.2-1.0)
[2023-01-13 05:05] LABS: MUCOUS Present (NOT PRESENT); SQUAMOUS EPITHELIAL 0-2 /hpf (0-10); URINE BACTERIA Occasional /hpf (NONE SEEN); URINE RBC 0-2 /hpf (0-2)
[2023-01-13 06:09] LABS: HEMOGLOBIN 11.8 g/dl (13.5-18.0); MEAN CELL VOLUME 86 fl (80.0-100.0); MEAN CORPUSCULAR HEMOGLOBIN 30 pg (27-31); MEAN CORPUSCULAR HGB CONC 34 g/dl (33.0-37.0); MEAN PLATELET VOLUME 11.9 fl (7.4-10.4); PLATELET COUNT 171 K/mm3 (130-400); REDCELL DISTRIBUTION WIDTH-CV 12.3 % (11.5-14.5)
[2023-01-13 06:10] LABS: HEMATOCRIT 34.4 % (42.0-52.0)
[2023-01-13 06:29] LABS: ALBUMIN 3.1 gm/dL (3.4-4.8); BILIRUBIN,TOTAL 0.3 mg/dL (0.2-1.2); CALCIUM 8.3 mg/dL (8.4-10.2); CREATININE, serum 2.35 mg/dL (0.72-1.25); POTASSIUM 4.3 mmol/L (3.5-4.5); TOTAL PROTEIN 5.4 gm/dL (6.2-8.1)
--- NOTE | 2023-01-13 07:01 | NUR ---
Patient arrived to medical unit from ER at approximately 0345. Alert and oriented, and able to make needs known. Reports pain to back. Abrasion to forehead, no bleeding. THERESE had been applied in ER, and this nurse placed tegaderm/tape to area as requested by patient. IV to right forearm. One SBA with going to bathroom. UA sent to lab. Voices no questions, needs, or concerns at this time. In bed with call light within reach. Bed alarm on.
--- NOTE | 2023-01-13 09:57 | NUR ---
PATIENT AWAKE AND ALERT, RESTING IN BED. PATIENTS CALL LIGHT [employer] REACH. 2 CANES FROM HOME AT BEDSIDE. PATIENT STATED HE USES BOTH WHEN AMBULATING, AND HAD SLIPPED ON A PEICE OF PAPER AT HOME, THERFOR FELL AND HIT HIS HEAD. PATIETS FALL PRECAUTIONS IN PLACE. PATIENT DENIES ANY NEEDS OR COMPLAINTS AT THIS TIME.
--- NOTE | 2023-01-13 10:06 | NUR ---
Musical Therapist met with patient to discuss discharge planning. Patient lives in [place] with his , Nicolette (ph#[phone]) [address] Owen for primary care. Patient was discharged from this facility yesterday and returned through the ED the same day after he slipped and fell at home. Patient advised when he was discharged yesterday, he did not get prescribed any new medications. Patient obtains medications from [facility] and advised he sometimes has difficulty affording them. Patient has two walking sticks that he primarily uses for ambulation. Patient also has a cane and a scooter. Patient has a CPAP but stated he does not use it. Patient reports independence with ADLS and plans to return home at time of discharge. Patient has DPOA-HC in chart designating his , Nicolette. Discharge Plan: Home, PT/OT to eval patient
--- NOTE | 2023-01-13 13:22 | NUR ---
Cardiac Rehab Note: Met with patient at bedside to discuss outpatient cardiac rehab (planned to do phone follow up today as patient was initially discharged yesterday after receiving PCI to RCA). Patient sleepy but aggreable to discussion. Reviewed cardiac risk factors for disease-diabetes, hypertension, hyperlipidemia, smoking (patient admits to smoking cigars), overweight, and low physical exercise. Informed of order for OP cardiac rehab, patient is interested in attending. Educated on program sessions, length, insurance coverage, and goals. Patient does not drive ( transports). Patient not very active at home, uses walking sticks. Will follow up on Monday either bedside or phone call if he has discharged. Phone number verified.
--- NOTE | 2023-01-13 15:23 | NUR ---
PATIENT CALLED RN, STATED HE FELT HIS SUGAR WAS LOW. PATIENTS BLOOD SUGAR WAS 39. IV DEXTROSE 12.5 PUSHED AT 1525. PATINET RESPONDING TO RN QUESTIONS HOWEVER HIS EYES WERE ROLLING BACK. PATIENT GIVEN ORANGE JUICE WELL AND WAS ABLE TO DRINK. PATIENT NOW VOICES FEELING BETTER. S5 MINUTE CHECK AT 1540.
--- NOTE | 2023-01-13 15:45 | NUR ---
PATIENT AWAKE AND ALERT, RESTING IN BED. PATIENTS BLOOD SUGAR NOW 106. PATIENT STATES HE IS FEEL MUCH BETTER. CALL LIGHT WITHIN REACH. DINNER FOR PATIENT ORDERED. RN EDUCATED PATINET ON HIS INTAKE NEEDS HE HAS NOT HAD MUCH TO EAT TODAY. PATIENT AGREED TO EAT DINNER. PATIENT STATED WHEN HE IS LOW AT HOME HE JUST EATS SUGAR PACKETS. FALL PRECAUTION IN PLACE.
--- NOTE | 2023-01-13 16:37 | NUR ---
NOTIFIED OF PATIENTS CRITICAL LOW BLOOD SUGAR, INTERVENTIONS AND RECHECK RESULT. PER MD VORB TO DC PATIENTS 70/30 INSULIN AND CHANGE HIS NOVOLOG SLIDING SCALE TO LOW SCALE.
--- NOTE | 2023-01-13 16:38 | NUR ---
NORIS UPDATED ON PATIENT STATUS.
--- NOTE | 2023-01-13 21:48 | NUR ---
Patient assessed around 2019. Denies having pain and discomfort. One assist with going to the bathroom for safety. Voices no questions, needs, or concerns at this time. In bed with call light within reach. High fall risk precautions in place. Bed alarm on.
[2023-01-14 01:30] VITALS: BP_SYST 133
[2023-01-14 03:07] VITALS: BP 134/76; PULSE 61; TEMP 97.7
[2023-01-14 03:16] VITALS: BP_SYST 134
--- NOTE | 2023-01-14 06:35 | NUR ---
Patient has denied having pain and discomfort this shift. Voices no questions, needs, or concerns at this time. In bed with call light within reach. High fall risk precautions in place. Bed alarm on.
[2023-01-14 07:09] VITALS: BP 135/67; PULSE 58; TEMP 97.7
[2023-01-14 07:26] LABS: HEMATOCRIT 35.8 % (42.0-52.0); HEMOGLOBIN 12.4 g/dl (13.5-18.0); MEAN CELL VOLUME 87 fl (80.0-100.0); MEAN CORPUSCULAR HEMOGLOBIN 30 pg (27-31); MEAN CORPUSCULAR HGB CONC 35 g/dl (33.0-37.0); MEAN PLATELET VOLUME 11.8 fl (7.4-10.4); PLATELET COUNT 175 K/mm3 (130-400); RED BLOOD COUNT 4.11 M/mm3 (4.20-5.60); REDCELL DISTRIBUTION WIDTH-CV 12.4 % (11.5-14.5)
[2023-01-14 07:33] LABS: CALCIUM 8.2 mg/dL (8.4-10.2); CREATININE, serum 2.03 mg/dL (0.72-1.25); POTASSIUM 4.1 mmol/L (3.5-4.5)
[2023-01-14 09:39] VITALS: BP_SYST 135
--- NOTE | 2023-01-14 11:19 | NUR ---
GAVE PATIENT DISCHARGE PAPERWORK. NURSING TALKED PATIENT ABOUT THE IMPORTNACE OF HOMEHEALTH AND GETTING A WALKER. ACKNOWLEDGED UNDERSTANDING. ARRIVED TO DIESEL INSPECTOR PATIENT .TRANSPORTED VIA WHEELCHAIR TO EXIT.
== END 2023-01-14 11:20 | disposition home or self-care (01) ==
LOC: COL.ER 21:16 → MEDICAL 01-13 02:28
PROVIDERS: Emergency Medicine; Physician Assistant; ADMIT Internal Medicine
DX: S00.01XA Abrasion of scalp, initial encounter (principal); I25.10 Atherosclerotic heart disease of native coronary artery without angina pectoris; I25.119 Atherosclerotic heart disease of native coronary artery with unspecified angina pectoris; E78.5 Hyperlipidemia, unspecified; I10 Essential (primary) hypertension; G20.A1 Parkinson's disease without dyskinesia, without mention of fluctuations; E11.9 Type 2 diabetes mellitus without complications; R56.9 Unspecified convulsions; E11.40 Type 2 diabetes mellitus with diabetic neuropathy, unspecified; R29.6 Repeated falls; F32.A Depression, unspecified; F02.80 Dementia in other diseases classified elsewhere, unspecified severity, without behavioral disturbance, psychotic disturbance, mood disturbance, and anxiety; W01.0XXA Fall on same level from slipping, tripping and stumbling without subsequent striking against object, initial encounter; Z87.891 Personal history of nicotine dependence; Z79.4 Long term (current) use of insulin; Z79.01 Long term (current) use of anticoagulants; Z79.82 Long term (current) use of aspirin; Z79.899 Other long term (current) drug therapy
CPT/HCPCS: G0378; J1815

== ENCOUNTER 2023-01-27 22:28 | Emergency (ER) | payer MEDICARE ==
[~2023-01-27] VITALS: Ht 170.2 cm; Wt 95.5 kg
[~2023-01-27 22:28] MED LIST changes: +NOVOLIN 70100 UNIT/2 SQ
[2023-01-27 22:32] VITALS: TEMP 97.8
[2023-01-27 22:48] LABS: BASO # 0.1 K/mm3 (0.0-0.2); BASO % 1.6 % (0.0-2.0); EOS # 0.4 K/mm3 (0.0-0.7); EOS % 7.3 % (0.0-4.0); GRAN # 2.4 K/mm3 (1.4-6.5); GRAN % 47.8 % (42.2-75.2); HEMATOCRIT 37.9 % (42.0-52.0); HEMOGLOBIN 11.8 g/dl (13.5-18.0); LYMPH # 1.8 K/mm3 (1.2-3.4); MEAN CELL VOLUME 94 fl (80.0-100.0); MEAN CORPUSCULAR HEMOGLOBIN 29 pg (27-31); MEAN CORPUSCULAR HGB CONC 31 g/dl (33.0-37.0); MEAN PLATELET VOLUME 11.5 fl (7.4-10.4); MONO # 0.4 K/mm3 (0.1-0.6); MONO % 7.9 % (1.7-9.3); PLATELET COUNT 168 K/mm3 (130-400); RED BLOOD COUNT 4.04 M/mm3 (4.20-5.60); REDCELL DISTRIBUTION WIDTH-CV 12.4 % (11.5-14.5)
[2023-01-27 23:01] LABS: PARTIAL THROMBOPLASTIN TIME 29.3 SECONDS (26.0-37.0)
[2023-01-27 23:04] LABS: ALBUMIN 3.3 gm/dL (3.4-4.8); BILIRUBIN,TOTAL 0.2 mg/dL (0.2-1.2); CALCIUM 8.2 mg/dL (8.4-10.2); CREATININE, serum 2.2 mg/dL (0.72-1.25); MAGNESIUM 2.2 mg/dL (1.6-2.6); POTASSIUM 4.5 mmol/L (3.5-4.5); TOTAL PROTEIN 5.9 gm/dL (6.2-8.1)
[2023-01-27 23:11] LABS: TROPONIN-I 0.076 ng/mL (0.00-0.033)
[2023-01-28 02:53] VITALS: BP 165/83; PULSE 52
== END 2023-01-28 02:57 | disposition home or self-care (01) ==
LOC: COL.ER 22:28
PROVIDERS: Family Medicine
DX: I20.9 Angina pectoris, unspecified (principal); Z95.5 Presence of coronary angioplasty implant and graft
CPT/HCPCS: J1815

== ENCOUNTER 2023-02-22 13:04 | Outpatient (RCR) | payer MEDICARE | END 2023-02-23 | disposition home or self-care (01) | LOC: COL.CR | DX: Z48.812 Encounter for surgical aftercare following surgery on the circulatory system (principal); Z95.5 Presence of coronary angioplasty implant and graft ==

== ENCOUNTER 2023-03-13 15:52 | Outpatient (RCR) | payer MEDICARE ==
[2023-03-13 19:27] VITALS: O2SAT 95; O2SAT 96
== END 2023-03-26 | disposition home or self-care (01) ==
LOC: COL.CR
DX: Z48.812 Encounter for surgical aftercare following surgery on the circulatory system (principal); Z95.5 Presence of coronary angioplasty implant and graft

== ENCOUNTER 2023-04-13 14:26 | Emergency (ER) | payer MEDICARE ==
[~2023-04-13] VITALS: Ht 170.2 cm; Wt 90.9 kg
[2023-04-13 14:27] VITALS: TEMP 98.3
[2023-04-13] MEDS ORDERED: NS 1,000 ML IV ONE ×2 (14:45→15:15)
[2023-04-13 15:06] LABS: BASO # 0.1 K/mm3 (0.0-0.2); BASO % 1.9 % (0.0-2.0); EOS # 0.3 K/mm3 (0.0-0.7); EOS % 6.3 % (0.0-4.0); GRAN # 2.8 K/mm3 (1.4-6.5); HEMOGLOBIN 11.6 g/dl (13.5-18.0); LYMPH # 1.1 K/mm3 (1.2-3.4); LYMPH % 23.4 % (20.0-51.0); MEAN CELL VOLUME 87 fl (80.0-100.0); MEAN CORPUSCULAR HEMOGLOBIN 30 pg (27-31); MEAN CORPUSCULAR HGB CONC 34 g/dl (33.0-37.0); MEAN PLATELET VOLUME 11.7 fl (7.4-10.4); MONO # 0.4 K/mm3 (0.1-0.6); MONO % 8.6 % (1.7-9.3); PLATELET COUNT 181 K/mm3 (130-400); RED BLOOD COUNT 3.86 M/mm3 (4.20-5.60)
[2023-04-13 15:26] LABS: HEMATOCRIT 33.7 % (42.0-52.0)
[2023-04-13 15:28] LABS: ALBUMIN 3.1 gm/dL (3.4-4.8); BILIRUBIN,TOTAL 0.5 mg/dL (0.2-1.2); CALCIUM 8.7 mg/dL (8.4-10.2); POTASSIUM 4.7 mmol/L (3.5-4.5); TOTAL PROTEIN 5.8 gm/dL (6.2-8.1)
[2023-04-13 15:50] LABS: PROLACTIN 28.3 ng/mL (3.46-19.40)
[2023-04-13 17:54] LABS: COLLECTION METHOD CLEAN CATCH
[2023-04-13 18:16] LABS: URINE APPEARANCE Clear (CLEAR/HAZY); URINE COLOR Yellow (YELLOW)
[2023-04-13 18:17] LABS: PH 5.5 (5.0-8.5); SQUAMOUS EPITHELIAL 0-2 /hpf (0-10); URINE BACTERIA Rare /hpf (NONE SEEN); URINE BLOOD Negative (NEGATIVE); URINE GLUCOSE 2+ (NEGATIVE); URINE KETONE Negative (NEGATIVE); URINE NITRATE Negative (NEGATIVE); URINE PROTEIN(semi-quant) 2+ (NEGATIVE); URINE RBC 0-2 /hpf (0-2); URINE UROBILINOGEN 0.2 E.U/dL (0.2-1.0)
[2023-04-13 19:15] LABS: HEMOGLOBIN 10.6 g/dl (13.5-18.0)
[2023-04-13 19:17] LABS: HEMATOCRIT 31.3 % (42.0-52.0)
[2023-04-13 20:32] VITALS: BP 119/67; PULSE 64
== END 2023-04-13 20:32 | disposition home or self-care (01) ==
LOC: COL.ER 14:26
PROVIDERS: Emergency Medicine; Family Medicine
DX: G40.909 Epilepsy, unspecified, not intractable, without status epilepticus (principal); K29.70 Gastritis, unspecified, without bleeding; R79.89 Other specified abnormal findings of blood chemistry
CPT/HCPCS: J7030

== ENCOUNTER → 2023-05-10 | Outpatient (CLI) | payer MEDICARE ==
[~2023-05-10] MED LIST changes: +OSCAL 500 TAB500 MG PO; +ZOFRAN ORAL4 MG/5 ML PO
== END ==
LOC: DIA.ED 04-05 16:08
DX: E11.22 Type 2 diabetes mellitus with diabetic chronic kidney disease (principal); N18.9 Chronic kidney disease, unspecified; Z79.4 Long term (current) use of insulin; I10 Essential (primary) hypertension; E78.5 Hyperlipidemia, unspecified
CPT/HCPCS: G0108

== ENCOUNTER 2023-05-22 16:00 | Outpatient (RCR) | payer MEDICARE ==
[2023-03-13 19:27] VITALS: O2SAT 96
== END 2023-05-25 | disposition home or self-care (01) ==
LOC: COL.CR
DX: Z48.812 Encounter for surgical aftercare following surgery on the circulatory system (principal); Z95.5 Presence of coronary angioplasty implant and graft

== ENCOUNTER → 2023-05-31 | Outpatient (CLI) | payer MEDICARE | LOC: DIA.ED 05-24 10:35 | DX: E11.40 Type 2 diabetes mellitus with diabetic neuropathy, unspecified (principal); E11.22 Type 2 diabetes mellitus with diabetic chronic kidney disease; N18.9 Chronic kidney disease, unspecified; Z79.4 Long term (current) use of insulin; E78.5 Hyperlipidemia, unspecified; I10 Essential (primary) hypertension | CPT/HCPCS: G0108 ==

== ENCOUNTER → 2023-07-12 | Outpatient (CLI) | payer MEDICARE | LOC: DIA.ED 15:34 | DX: E11.59 Type 2 diabetes mellitus with other circulatory complications (principal); E11.22 Type 2 diabetes mellitus with diabetic chronic kidney disease; Z79.4 Long term (current) use of insulin; I10 Essential (primary) hypertension; E78.5 Hyperlipidemia, unspecified | CPT/HCPCS: G0108 ==

== ENCOUNTER 2023-07-19 16:19 | Outpatient (RCR) | payer MEDICARE ==
[2023-03-13 19:27] VITALS: O2SAT 96
== END 2023-07-25 | disposition home or self-care (01) ==
LOC: COL.CR
DX: Z48.812 Encounter for surgical aftercare following surgery on the circulatory system (principal); Z95.5 Presence of coronary angioplasty implant and graft

== ENCOUNTER → 2023-10-11 | Outpatient (CLI) | payer MEDICARE | LOC: DIA.ED 09-13 12:43 | DX: Z79.4 Long term (current) use of insulin (principal); E78.5 Hyperlipidemia, unspecified; I10 Essential (primary) hypertension; E11.40 Type 2 diabetes mellitus with diabetic neuropathy, unspecified | CPT/HCPCS: G0108 ==

== ENCOUNTER 2023-12-08 10:19 | Emergency (ER) | payer MEDICARE ==
[~2023-12-08] VITALS: Ht 170.2 cm; Wt 104.5 kg
[2023-12-08 10:27] VITALS: TEMP 97.8
[2023-12-08 11:33] VITALS: BP 188/85; PULSE 52
== END 2023-12-08 11:39 | disposition home or self-care (01) ==
LOC: COL.ER 10:19
DX: S09.90XA Unspecified injury of head, initial encounter (principal); S13.4XXA Sprain of ligaments of cervical spine, initial encounter; I25.10 Atherosclerotic heart disease of native coronary artery without angina pectoris; Z79.82 Long term (current) use of aspirin; Z79.02 Long term (current) use of antithrombotics/antiplatelets; W01.198A Fall on same level from slipping, tripping and stumbling with subsequent striking against other object, initial encounter; Y93.01 Activity, walking, marching and hiking

== ENCOUNTER 2024-01-03 13:12 | Inpatient (IN) | payer MEDICARE ==
[~2024-01-03] VITALS: Ht 170.2 cm; Wt 104.1 kg
[2024-01-03 14:01] LABS: BASO # 0.1 K/mm3 (0.0-0.2); BASO % 2.1 % (0.0-2.0); EOS # 0.6 K/mm3 (0.0-0.7); EOS % 9.3 % (0.0-4.0); GRAN # 3.3 K/mm3 (1.4-6.5); GRAN % 51.9 % (42.2-75.2); HEMATOCRIT 43.1 % (42.0-52.0); HEMOGLOBIN 14.6 g/dl (13.5-18.0); LYMPH # 1.8 K/mm3 (1.2-3.4); LYMPH % 28.8 % (20.0-51.0); MEAN CELL VOLUME 89 fl (80.0-100.0); MEAN CORPUSCULAR HEMOGLOBIN 30 pg (27-31); MEAN CORPUSCULAR HGB CONC 34 g/dl (33.0-37.0); MEAN PLATELET VOLUME 10.5 fl (7.4-10.4); MONO # 0.5 K/mm3 (0.1-0.6); MONO % 7.1 % (1.7-9.3); PLATELET COUNT 207 K/mm3 (130-400); RED BLOOD COUNT 4.82 M/mm3 (4.20-5.60)
[2024-01-03 14:22] LABS: PARTIAL THROMBOPLASTIN TIME 32.7 SECONDS (26.0-37.0)
[2024-01-03 14:23] LABS: ALBUMIN 3.3 g/dL (3.4-4.8); BILIRUBIN,TOTAL 0.4 mg/dL (0.2-1.2); CREATININE, serum 2.29 mg/dL (0.72-1.25); TOTAL PROTEIN 6.7 g/dl (6.2-8.1)
[2024-01-03 14:35] LABS: TROPONIN-I 0.236 ng/mL (0.00-0.033)
[2024-01-03] MEDS ORDERED: Iohexol 300 - 100 ML VIAL IV ONE (14:38)
[2024-01-03] MEDS ORDERED: NS 100 ML IV SCH (14:39)
[2024-01-03] MEDS ORDERED: NS 1,000 ML IV ONE (15:45)
[2024-01-03 16:00] VITALS: BP 187/91; PULSE 63; TEMP 97.7
[2024-01-03] MEDS ORDERED: Acetaminophen 500 MG TAB PO PRN (16:00)
[2024-01-03] MEDS ORDERED: Ondansetron 4 MG/2 ML VIAL IV PRN (16:00)
[2024-01-03] MEDS ORDERED: amLODIPine 5 MG TAB PO ONE (16:00)
[2024-01-03] MEDS ORDERED: SYMMETREL100 M1 PO (16:41)
[2024-01-03] MEDS ORDERED: COZAAR 50MG50 MG/TAB PO (16:42)
[2024-01-03 17:00] VITALS: BP_SYST 182
[2024-01-03] MEDS ORDERED: hydrALAZINE 25 MG TAB PO SCH (17:04)
[2024-01-03] MEDS ORDERED: Nitroglycerin 0.4 MG/HR DAILY PATCH TD SCH (17:05)
[2024-01-03] MEDS ORDERED: Insulin Lispro (HumaLOG) SQ SCH (17:09)
--- NOTE | 2024-01-03 17:15 | NUR ---
Pt. arrived to the floor from ED. Pt. is A&OX3, assessment complete. INT to rt. forearm patent. Pt. denies pain at this time. Call light within reach.
--- NOTE | 2024-01-03 18:07 | NUR ---
Notified James Winn of Critical troponin.
[2024-01-03] MEDS ORDERED: Dextrose (Glucose) 15 GM (4 x 3.75 GM) Chewable TABLET PACK PO PRN (18:15)
[2024-01-03] MEDS ORDERED: Glucagon 1 MG VIAL IM PRN (18:15)
[2024-01-03] MEDS ORDERED: Dextrose 50% Water 25 GM/50 ML SYRINGE IV PRN (18:15)
[2024-01-03 19:28] VITALS: BP 144/74; PULSE 51; TEMP 97.9
--- NOTE | 2024-01-03 19:56 | NUR ---
PATIENT RESTING IN BED. DENIES PAIN AT THIS TIME. ALSO DENIES CHEST PAIN, PALPITATIONS, SHORTNESS OF BREATH. CALL LIGHT WITHIN REACH. UNDERSTANDS THAT HE WILL NEED TO BE NPO AT MIDNIGHT. BED IS LOCKED AND IN LOW POSITION.
[2024-01-03] MEDS ORDERED: Ranolazine ER 500 MG TAB PO SCH (21:00)
[2024-01-03] MEDS ORDERED: Atorvastatin 80 MG TAB PO SCH (21:00)
[2024-01-03] MEDS ORDERED: Gabapentin 300 MG CAP PO SCH (21:00)
[2024-01-03] MEDS ORDERED: Insulin NPH/REG (NovoLIN 70/30) SQ SCH (21:00)
[2024-01-03 21:36] VITALS: BP_SYST 144
[2024-01-03 23:18] VITALS: BP 173/68; PULSE 55; TEMP 97.4
[2024-01-04] VITALS (18 sets, daily range): BP systolic 91–192; BP diastolic 45–84; PULSE 49–54; TEMP 97.6–98.1
--- NOTE | 2024-01-04 03:18 | NUR ---
PATIENT CALLED DESK STATING HIS BLOOD SUGAR WAS LOW. PCT CHECKED GLUCOSE LEVEL AND LEVEL WAS 51. GAVE PATIENT DEXTROSE CHEWS AND WILL RECHECK BLOOD GLUCOSE.
[2024-01-04 05:27] LABS: BASO # 0.1 K/mm3 (0.0-0.2); BASO % 1.4 % (0.0-2.0); EOS # 0.5 K/mm3 (0.0-0.7); EOS % 7.9 % (0.0-4.0); GRAN # 3.3 K/mm3 (1.4-6.5); GRAN % 57.3 % (42.2-75.2); HEMATOCRIT 38.4 % (42.0-52.0); LYMPH # 1.4 K/mm3 (1.2-3.4); LYMPH % 24.4 % (20.0-51.0); MEAN CELL VOLUME 87 fl (80.0-100.0); MEAN CORPUSCULAR HEMOGLOBIN 29 pg (27-31); MEAN CORPUSCULAR HGB CONC 34 g/dl (33.0-37.0); MEAN PLATELET VOLUME 10.6 fl (7.4-10.4); MONO # 0.5 K/mm3 (0.1-0.6); MONO % 8.1 % (1.7-9.3); PLATELET COUNT 185 K/mm3 (130-400); RED BLOOD COUNT 4.42 M/mm3 (4.20-5.60); REDCELL DISTRIBUTION WIDTH-CV 11.9 % (11.5-14.5)
[2024-01-04 05:49] LABS: CALCIUM 8.4 mg/dL (8.4-10.2); CHOLESTEROL RISK RATIO 6.6; CREATININE, serum 2.07 mg/dL (0.72-1.25)
--- NOTE | 2024-01-04 05:58 | NUR ---
CRITICAL TROPONIN OF 0.210 CALLED TO HOSPITALIST HUE SAMUELS
--- NOTE | 2024-01-04 07:06 | NUR ---
Pt sleeping in bed, has been NPO from [facility], hypoglycemia at night, treated per protocol. Report received from MUKESH Bruno.
--- NOTE | 2024-01-04 08:11 | NUR ---
PATIENT RESTING IN BED UPON ENTERING THE ROOM. , MYNOR, AT BEDSIDE. PATIENT CALLED FOR STAND BY ASSISTANCE HE AMBULTED TO THE BATHROOM. AMBULATED WITH A STEADY GATE. DENIES PAIN AT THIS TIME. VOIDED CLEAR YELLOW URINE. AMBULATED BACK TO THE BED AND SHIFT ASSESSMENT COMPLETED. IV SITE IN RIGHT AC FLUSHED. NO IV FLUIDS RUNNING AT THIS TIME. PATIENT ASKED QUESTIONS ABOUT PLAN FOR TODAY. ADVISED PATIENT THAT WE WOULD ASK PROVIDER WHEN THEY ROUND. BED IN LOW POSITION AND CALL LIGHT WITHIN REACH. CONTINUE CURRENT PLAN.
[2024-01-04] MEDS ORDERED: Insulin NPH/REG (NovoLIN 70/30) SQ SCH ×3 (09:00→21:00)
[2024-01-04] MEDS ORDERED: Escitalopram 10 MG TAB PO SCH (09:00)
[2024-01-04] MEDS ORDERED: Clopidogrel 75 MG TAB PO SCH (09:00)
[2024-01-04] MEDS ORDERED: hydroCHLOROthiazide 12.5 MG CAP PO SCH (09:00)
--- NOTE | 2024-01-04 09:42 | NUR ---
drywall metal stud worker met with pt and , Nicolette [phone] to discuss discharge planning. Pt confirmed to live with his in [place]. He sees Dr. Owen for PCP needs and obtains medications from [facility] with no difficulties. He reports to be independent with ADLS and uses a cane and rolator for DME. He confirmed his as DPOA-HC which is on file. Pt voiced no needs at this time. PT/OT pending Discharge Plan: tbd, home likely
--- NOTE | 2024-01-04 09:51 | NUR ---
Metoprolol acknowledge by this student nurse with MUKESH Bacon, staff nurse.
[2024-01-04] MEDS ORDERED: amLODIPine 5 MG TAB PO ONE (10:00)
--- NOTE | 2024-01-04 10:21 | NUR ---
PATIENTS BLATERAL LOWER EXTREMITIES WRAPPED WITH 4" HAILEE BANDAGE FROM TOES TO KNEE. PEDAL PULSES PALPABLE EASILY ON BOTH LEFT AND RIGHT SIDES PRIOR TO AND AFTER WRAPPING.
--- NOTE | 2024-01-04 10:44 | NUR ---
PATIENT STATED HE WAS FEELING NAUSEAS AND FELT LIKE THERE WAS A BURNING IN HIS RIGHT EYE. REQUESTED PRN ZOFRAN. PATIENT NOTED TO HAVE VOMITED CLEAR FLUIDS. ZOFRAN ADMINISTERED AND A COLD WASH CLOTH APPLIED TO HIS HEAD. GLUCOMETER CHECK SHOWED GLUCOSE AT 98. PATIENT SITTING UP IN BED. REPORTS IMPROVEMENT IN NAUSEA. RESTING COMFORTABLY AT THIS TIME.CALL LIGHT WITHIN REACH AND BED AT LOW POSITION.
--- NOTE | 2024-01-04 11:32 | NUR ---
PATIENT LAYING IN BED UPON ENTERING THE ROOM. REPORTS INCREASED NAUSEA AND ABDOMINAL PAIN. COLD WASHCLOTH APPLIED TO FOREHEAD. PATIENT REPOSITIONED TO HIS RIGHT SIDE. REPORTS ABDOMINAL PAIN GENERALIZED AT A 5/10 ON THE PAIN SCALE. VITAL SIGNS OBTAINED AND RECORDED. FLOOR NURSE NOTIFIED OF VITAL SIGN AND ONGOING SYMPTOMS.
--- NOTE | 2024-01-04 12:56 | NUR ---
RETURNED TO FLOOR. PATIENT RESTING IN BED. NO ONE PRESENT AT BEDSIDE. PATIENT ADVISED HE CAN EAT IF HE WANTS. STATES HE IS NOT FEELING LIKE EATING RIGHT NOW BUT WILL CALL IF HE DOES. CALL LIGHT WITHIN REACH. BED IN LOW POSITION.
[2024-01-04] MEDS ORDERED: Naloxone 0.4 MG/ML VIAL IV PRN (13:00)
[2024-01-04] MEDS ORDERED: fentaNYL 50 MCG/ML 2 ML VIAL IV PRN (13:00)
--- NOTE | 2024-01-04 13:38 | NUR ---
PATIENT LAYING IN BED RESTING. STATES HE IS STILL HAVING NAUSEA WITH NO VOMITING. REPORTS SOME DISCOMFORT IN HIS ABDOMEN RATED 4/10. PATIENT GIVEN ORANGE JELLO SINCE HIS NPO STATUS WAS CHANGED TO HEART HEALTHY DIET. TOLERATING WELL. DOES NOT WISH TO TAKE HIS 1400 GABAPENTIN AT THIS TIME. FLOOR NURSE NOTIFIED. REPORT GIVEN BY THIS STUDENT NURSE TO FLOOR NURSE BEFORE EXITING THE FLOOR. CALL LIGHT WITHIN REACH AND BED IN LOW POSITION UPON EXITING ROOM.
--- NOTE | 2024-01-04 17:37 | NUR ---
Call placed to Dr. Biswas about scheduled hydralazine for pt since BP WNL. Oredered to hold 1700 dose.
--- NOTE | 2024-01-04 18:30 | NUR ---
Patient with some nausea in the morning. He refused to eat most of his dinner. Denies chest pain. Aware of NPO after MDN. BP WNL. Bradicardic on Telemetry. Report will be given to night RN.
--- NOTE | 2024-01-04 21:20 | NUR ---
Patient resting in bed. Denies any pain at this time. Assisted patient to bathroom and back to bed. Assessment complete. HAILEE wraps applied to BLE from toes to mid thighs. IV in right AC flushes easily without any complications. Needs met. Call light and personal items in reach. Bed in low position and bed alarm on.
[2024-01-05] VITALS (15 sets, daily range): BP systolic 93–170; BP diastolic 54–103; PULSE 52–62; TEMP 97.5–98.6
[2024-01-05 07:05] LABS: BASO # 0.1 K/mm3 (0.0-0.2); BASO % 1.6 % (0.0-2.0); EOS # 0.5 K/mm3 (0.0-0.7); EOS % 7.9 % (0.0-4.0); GRAN # 3.7 K/mm3 (1.4-6.5); GRAN % 54.5 % (42.2-75.2); HEMATOCRIT 38.9 % (42.0-52.0); HEMOGLOBIN 13.2 g/dl (13.5-18.0); LYMPH # 1.8 K/mm3 (1.2-3.4); LYMPH % 27.1 % (20.0-51.0); MEAN CELL VOLUME 88 fl (80.0-100.0); MEAN CORPUSCULAR HEMOGLOBIN 30 pg (27-31); MEAN CORPUSCULAR HGB CONC 34 g/dl (33.0-37.0); MEAN PLATELET VOLUME 10.8 fl (7.4-10.4); MONO # 0.6 K/mm3 (0.1-0.6); MONO % 8.3 % (1.7-9.3); PLATELET COUNT 195 K/mm3 (130-400)
[2024-01-05 07:18] LABS: CALCIUM 8.5 mg/dL (8.4-10.2); CREATININE, serum 2.5 mg/dL (0.72-1.25); POTASSIUM 4.4 mEq/L (3.5-4.5)
--- NOTE | 2024-01-05 07:41 | NUR ---
UPON ENTERING ROOM, PATIENT RESTING IN BED. HAILEE WRAPS APPLIED PER ORDERS FROM TOES TO MID THIGHS WITH GRIPPER COKS ON WELL. ASSESSMENT COMPLETED. VITAL SIGNS OBTAINED. BP MEASUREMENT WAS 167/103 AT INITAL CHECK, WAITED 15 MINUTES AND RECHECKED, AND WAS 93/68. PAIN ASSESSMENT COMPLETED. NO ONE AT BEDSIDE AT THIS TIME. STAFF NURSE NOTIFIED OF FINDINGS AND ADVISED TO RECHECK BLOOD PRESSURE AT 8AM. PATIENT IS CURRENTLY NPO. REPORTED HE WAS HAVING DIFFICULTY URINATING OVERNIGHT LAST NIGHT, BUT WAS ABLE TO VOID THIS MORNING. CALL LIGHT WITHIN REACH AND BED IN LOW POSITION.
--- NOTE | 2024-01-05 09:34 | NUR ---
Initial visit; Patient thanked Quarryman for looking in on him and offering God's blessings. Antonino says he's feeling a little better and was receptive to Quarryman keeping him in her prayers.
--- NOTE | 2024-01-05 13:45 | NUR ---
UPON ENTERING ROOM, PATIENT RESTING COMFORTABLY IN BED. DENIES ANY PAIN AT THIS TIME. DENIES CONCERNS AT THIS TIME. HAILEE WRAPS IN PLACE BILATERALLY TO LOW EXTREMITIES FROM TOES TO MID-THIGH. GRIPPY SOCKS OVER THOSE. WALKER AT BEDSIDE FOR AMBULATION ASSISTANCE PER PHYSICAL THERAPY. END OF SHIFT REPORT GIVEN TO FLOOR NURSE, MUKESH MORELAND. CALL LIGHT WITHIN REACH OF PATIENT. BED IN LOW POSITION. CONTINUE CURRENT PLAN OF CARE.
--- NOTE | 2024-01-05 18:21 | NUR ---
Patient wanted to go home today, educated about the need to monitor BP, labs, and adjust his medications. He is aware of POC. Ate half of his dinner, tolerating well. Report will be given to night RN.
--- NOTE | 2024-01-05 20:43 | NUR ---
Hospitalist Edita called and notified of patients increased edema over the past 4 nights this nurse has cared for him and he now has +2 pitting edema in BUE and BLE. Currently recieving albumin and oral fluid intake is decent. Recieved new orders, see MAR.
--- NOTE | 2024-01-05 21:40 | NUR ---
Patient resting in bed. Denies any pain or needs at this time. Assessment complete. IV in right AC flushes easily without complications. Call light and personal items in reach. Bed in low position and bed alarm on.
--- NOTE | 2024-01-05 23:47 | NUR ---
Hospitalist Edita called for BP of 170/88. Informed that patient gets PO hydralazine twice a day and his blood pressue has been fluctuating. Recieved orders to recheck in about 30 minutes to an hour and call back if systolic is >170.
[2024-01-06] VITALS (12 sets, daily range): BP systolic 131–188; BP diastolic 63–97; PULSE 54–67; TEMP 97.4–98.1
[2024-01-06 06:31] LABS: BASO # 0.1 K/mm3 (0.0-0.2); BASO % 1.7 % (0.0-2.0); EOS # 0.4 K/mm3 (0.0-0.7); EOS % 6.3 % (0.0-4.0); GRAN # 3.7 K/mm3 (1.4-6.5); HEMATOCRIT 39.8 % (42.0-52.0); HEMOGLOBIN 13.6 g/dl (13.5-18.0); LYMPH # 1.6 K/mm3 (1.2-3.4); LYMPH % 25.2 % (20.0-51.0); MEAN CELL VOLUME 88 fl (80.0-100.0); MEAN CORPUSCULAR HEMOGLOBIN 30 pg (27-31); MEAN CORPUSCULAR HGB CONC 34 g/dl (33.0-37.0); MEAN PLATELET VOLUME 10.6 fl (7.4-10.4); MONO # 0.5 K/mm3 (0.1-0.6); PLATELET COUNT 178 K/mm3 (130-400); RED BLOOD COUNT 4.52 M/mm3 (4.20-5.60); REDCELL DISTRIBUTION WIDTH-CV 11.9 % (11.5-14.5)
[2024-01-06 06:49] LABS: CALCIUM 8.7 mg/dL (8.4-10.2); CREATININE, serum 2.76 mg/dL (0.72-1.25); POTASSIUM 4.2 mEq/L (3.5-4.5)
--- NOTE | 2024-01-06 07:21 | NUR ---
PATIENT ASLEEP, RESTING IN BED, PATIENT CHIARA LIGHT WITHIN REACH. RESPIRATIONS WNL, PATIETN APPEARS TO BE IN NO ACUTE DISTRESS.
--- NOTE | 2024-01-06 22:00 | NUR ---
Scheduled meds administered per MAY. Shift assessment complete. Noted pitting edema to BLE. HAILEE wrap to BLE and feet changed at this time. No further outstanding findings. Pt. denies pain. Call light in reach.
[2024-01-07] VITALS (12 sets, daily range): BP systolic 116–178; BP diastolic 66–86; PULSE 54–57; TEMP 97.4–97.9
--- NOTE | 2024-01-07 00:45 | NUR ---
PCT reported pt's blood pressure was elevated. This nurse reassessed and BP is decreased. Pt. does not appear to be in distress. Call light in reach.
--- NOTE | 2024-01-07 01:00 | NUR ---
radiation protection engineer assisted pt to and from restroom- reported pt's gait is very "wobbly" and pt. seems confused, which he had not earlier this evening. sow farm barn technician called to report low battery. This nurse assessed pt. and changed batteries. Pt. is able to answer orientation questions correctly but is confused/forgetful at this time. For example, after returning from restroom, pt forgot having just gone to restroom. Fall precautions are in place and call light is in reach.
--- NOTE | 2024-01-07 05:51 | NUR ---
Scheduled meds administered per MAY. Pt. denies needs or requests this morning. Call light in reach and fall precautions in place.
[2024-01-07 06:36] LABS: CALCIUM 8.8 mg/dL (8.4-10.2); CREATININE, serum 2.87 mg/dL (0.72-1.25); POTASSIUM 4.2 mEq/L (3.5-4.5)
--- NOTE | 2024-01-07 07:24 | NUR ---
solid waste technician called to report critical blood glucose of 63. Pt. given 8 oz orange juice, 4x gram crackers, and 1.5 oz peanutbutter. Hospitalist, Malachi, notified. No new orders received.
[2024-01-07] MEDS ORDERED: Insulin NPH/REG (NovoLIN 70/30) SQ SCH (09:00)
--- NOTE | 2024-01-07 10:00 | NUR ---
EARLIER THIS RN SAW PART OF PATIENTS PHYSICAL THERAPY SESSION. PATIENT TOOK MULTIPLE ATTEMPTS TO STAND WITH THERAPY. AFTER PATIENT SAT EDGE OF BED. HE WAS UNABLE TO SIT UPRIGHT AND KEPT LEANING BACK ON THE BED. DAVEY STATED HE WAS "WORN OUT" FROM STANDIN GWITH THERAPY. PATIENTS [place] SEEMS OFF TO THIS RN AND THERAPY, HOWEVER HE ANSWERS ALL ORIENTATION QUESTIONS APROPRIATLY. PATIENT ONW SITITNG UP IN BED, AWAKE ALERT AND ORIENTED. CALL LIGHT WITHIN REACH. FALL PRECAUTIONS IN REACH
--- NOTE | 2024-01-07 16:00 | NUR ---
PATIENT AWAKE AND ALERT, SITITNG UP IN BED. PATIENT DENIES ANY NEEDS OR COMPLIAINTS AT THIS TIME. CALL LIGHT WITHIN REACH. FALL PRECAUTIONS IN PLACE.
--- NOTE | 2024-01-07 16:05 | NUR ---
Physical therapy reassessing patient, potential SNF instead of home health. SW will continue to follow. Discharge plan: home with home health vs SNF
--- NOTE | 2024-01-07 19:15 | NUR ---
PATIENT RESTING SITTING UP IN BED WITH TV OFF WITH NO FAMILY PRESENT WITH NO ACUTE DISTRESS NOTED. PATIENT ON ROOM AIR. INT TO RIGHT AC INTACT WITH NO COMPLICATIONS NOTED. TELEMETRY INTACT. BEDSIDE SHIFT REPORT COMPLETED WITH PAZ AT THIS TIME. PATIENT DENIES ANY NEEDS. BED IN LOW POSITION WITH WHEELS LOCKED WITH RAILS UP X3 AND CALL LIGHT WITHIN REACH. BED ALARM ON.
--- NOTE | 2024-01-07 21:15 | NUR ---
PATIENT SITTING UP IN BED WITH TV OFF WITH NO FAMILY PRESENT WITH NO ACUTE DISTRESS NOTED. PATIENT ON ROOM AIR. INT TO RIGHT AC INTACT WITH NO COMPLICATIONS NOTED. ASSESSMENT AND MEDICATION ADMINISTRATION COMPLETED AT THIS TIME. PATIENT TOLERATED WELL. PATIENT DENIES ANY NEEDS. BED IN LOW POSITION WITH WHEELS LOCKED WITH RAILS UP X3 AND CALL LIGHT WITHIN REACH. BED ALARM ON.
[2024-01-08] VITALS (17 sets, daily range): BP systolic 118–184; BP diastolic 71–112; PULSE 53–76; TEMP 97.5–98.1
--- NOTE | 2024-01-08 01:13 | NUR ---
HOSPITALIST ANGIE ALY APRN CALLED FOR PATIENT ELEVATED BLOOD PRESSURE. TELEPHONE ORDER RECIEVED FROM HYDRALAZINE 10 MG IV EVERY 4 HOURS PRN FOR SBP >170.
[2024-01-08] MEDS ORDERED: hydrALAZINE 20 MG/ML 1 ML VIAL IV PRN (01:30)
[2024-01-08 07:19] LABS: CALCIUM 8.9 mg/dL (8.4-10.2); CREATININE, serum 2.86 mg/dL (0.72-1.25); POTASSIUM 4.1 mEq/L (3.5-4.5)
--- NOTE | 2024-01-08 08:34 | NUR ---
Patient resting in bed, alert and oriented x 4, denies any chest or discomfort. NPO, no caffeine. Awaiting for lexiscan. Assessment completed. Ludwig wraps changed. No further needs at this time. Call light within reach.
--- NOTE | 2024-01-08 09:15 | NUR ---
Patient taken for lexiscan.
[2024-01-08] MEDS ORDERED: Regadenoson 0.08 MG/ML 5 ML SYRINGE IV SCH (09:47)
[2024-01-08] MEDS ORDERED: Losartan 50 MG TAB PO SCH (12:00)
--- NOTE | 2024-01-08 16:16 | NUR ---
Core Finisher met with patient to discuss discharge planning after rounds. SW presented Medicare.gov list of Home Health and SNF options. Patient would like to see how therapy goes today. Patient's is in agreement. SAM followed up with patient after therapy and he feels things went better today. Patient would like to return home and stated he would consider Home Health, but was worried about his house being messy. SAM followed up with patient's who wanted to have HH set up and selected [facility] . SAM contacted Jack with [facility] and faxed referral. Jack advised they can accept at time of discharge.
--- NOTE | 2024-01-08 22:30 | NUR ---
CALL PLACED TO HOSPITALIST, PAUL. PATIENT EXHIBITS INCREASED CONFUSION AND NEEDS CONSTANT RE-ORIENTING. RT FACIAL DROOP NOTED-PATIENT STATES THIS IS BASELINE, HOWEVER, PATIENT IS SLOW TO RESPOND TO ASSESSMENT QUESTIONS. DEXTERITY IN HANDS APPEARS CHANGED, PATIENT EXPERIENCING DIFFICULTY GRIPPING DRINK AND PILLS, NOT NOTED AT BEGINNING OF SHIFT. STRANGELY, NEUROS ARE WNL. VS ARE STABLE. TORB FOR CT HEAD W/O CONTRAST GIVEN.
[2024-01-09] VITALS (12 sets, daily range): BP systolic 95–192; BP diastolic 55–93; PULSE 52–62; TEMP 97.4–98.3
--- NOTE | 2024-01-09 01:30 | NUR ---
HOSPITALIST PAUL BEDSIDE ASSESSING PATIENT. TORB TO PLACE SPEECH CONSULT GIVEN HEAD CT NEGATIVE. NEUROS WNL. PATIENT PLEASANTLY CONFUSED.
--- NOTE | 2024-01-09 03:32 | NUR ---
ASSISSTED PATIENT TO RESTROOM. ACCORDING TO PCTTIFF, PROFOUND WEAKNESS HAS EVOLVED IN GAIT. PATIENT IS NOW 2 ASSIST WITH STANDBY WALKER AND GAIT BELT. PATIENT ALSO BECOMING MORE CONFUSED-PLEASANTLY. HOSPITALIST AWARE.
[2024-01-09 07:40] LABS: CALCIUM 8.9 mg/dL (8.4-10.2); CREATININE, serum 2.88 mg/dL (0.72-1.25); POTASSIUM 4.3 mEq/L (3.5-4.5)
[2024-01-09] MEDS ORDERED: Empagliflozin 10 MG TAB PO SCH (09:00)
--- NOTE | 2024-01-09 12:05 | NUR ---
Pt to MRI with MRI staff via w/c.
--- NOTE | 2024-01-09 15:46 | NUR ---
Director Of Slot Operations attended multi-disciplinary meeting with Hospitalist and Therapy. SNF is now the recommendation for patient in part due to his confusion. SAM attempted to meet with patient and he was not oriented. Patient stated to SAM, "I'm going to the hospital tomorrow". SAM contacted patient's , Nicolette who is in agreement with SNF. [facility] but is agreeable to have referrals sent both to [facility] and [facility] as a back up option. SAM Tomlin sent referrals via secure email and uploaded clinicals to [facility] for prior auth. Discharge Plan: SNF, pending acceptance and auth
--- NOTE | 2024-01-09 19:47 | NUR ---
Shortly after report this am, patient was found to be attempting to climb over the bedrail. Pt confused and saying he was seeing people that were not in the room. Pt was moved to room 312, closer to the nurses desk. Pt's confusion improved after moving to room 312 but still remained- patient hasn't attempted to get OOB. Fall precautions in place. Seizure precautions in place. Right facial drooping present- after speaking to , she reports that the facial drooping is residual from his previous strokes. Patient coughed with am some of his am medications. Medications administered whole with applesauce and patient did not have any coughing. Bedside report given to MUKESH Cooper.
[2024-01-10] VITALS (11 sets, daily range): BP systolic 108–184; BP diastolic 52–93; PULSE 51–62; TEMP 96.7–98
--- NOTE | 2024-01-10 01:10 | NUR ---
pt refusing to use bedside commode with assistance, urinal provided pt stated "everyone has to get out of the room" "there's too many people in this room", only this RN was present in the room at this time. urinal given to patient while in bed, bed alarm on RN exited room.
--- NOTE | 2024-01-10 07:25 | NUR ---
patient lying in bed alert and oriented x2-3, hallucinating children in the room and handing nurse air stating "paperwork for leaving", confusion about being in the hospital. denies chest pain and shortness of breath. nu wraps on BLE. IV in RAC is patent, site CDI. using urinal to void. no additional remarkable skin findings. fall precautions in place, call light within reach. pt has no further needs, questions, or concerns at this time.
[2024-01-10 09:23] LABS: BASO # 0.1 K/mm3 (0.0-0.2); BASO % 1.3 % (0.0-2.0); EOS # 0.4 K/mm3 (0.0-0.7); EOS % 6.1 % (0.0-4.0); GRAN # 3.9 K/mm3 (1.4-6.5); GRAN % 57.8 % (42.2-75.2); HEMATOCRIT 40.2 % (42.0-52.0); HEMOGLOBIN 13.6 g/dl (13.5-18.0); LYMPH # 1.7 K/mm3 (1.2-3.4); LYMPH % 24.5 % (20.0-51.0); MEAN CELL VOLUME 88 fl (80.0-100.0); MEAN CORPUSCULAR HEMOGLOBIN 30 pg (27-31); MEAN CORPUSCULAR HGB CONC 34 g/dl (33.0-37.0); MEAN PLATELET VOLUME 11.2 fl (7.4-10.4); MONO # 0.7 K/mm3 (0.1-0.6); MONO % 9.7 % (1.7-9.3); PLATELET COUNT 196 K/mm3 (130-400); RED BLOOD COUNT 4.55 M/mm3 (4.20-5.60); REDCELL DISTRIBUTION WIDTH-CV 12.6 % (11.5-14.5)
[2024-01-10] MEDS ORDERED: Ranolazine ER 500 MG TAB PO SCH (09:30)
[2024-01-10 09:41] LABS: CALCIUM 8.8 mg/dL (8.4-10.2); CREATININE, serum 2.99 mg/dL (0.72-1.25); POTASSIUM 4.3 mEq/L (3.5-4.5)
--- NOTE | 2024-01-10 11:43 | NUR ---
PATIENT HAD AN UNWITNESSED FALL @ 1120 , D/T A FAULTY CHAIR ALARM. PATIENT NOW AWAKE AND ALERT, SITTING UP IN BED, A&OX2 (SAME THIS AM BASELINE). PATIENTS CHIARA LLIGHT WITHIN REACH, FALL PRECAUTIOSN IN PLACE, BED ALARM ON. PATIENTS VS CHARTED. MD NOTIFIED WITH NO NEW ORDERS AT THIS TIME. FOR DETAILS PLEASE SEE EVENT REPORT.
--- NOTE | 2024-01-10 13:51 | NUR ---
PATIENT IS CURRENTLY ASLEEP, RESTING IN BED, CALL LIGHT WITHIN REACH. FALL PRECAUTIONS IN PLACE. BED ALARM ON.
--- NOTE | 2024-01-10 15:38 | NUR ---
Mian at [facility] can tentatively accept patient pending insurance authorization, which SW advised has been approved per [facility]. SW attended clinical rounds and patient is still confused. Hospitalist is not ready to discharge today. SAM met with patient and his daughters to update on placement. SAM faxed updates to both [facility] and [facility]. Discharge Plan: SNF
--- NOTE | 2024-01-10 16:18 | NUR ---
ROSAMARIA AGAIN REMINDED A URINE SAMPLE IS NEEDED. THIS INFORMED PATIENT IF WE ARE ABLE TO BLADDER SCAN HIM WE CAN SEE HOW MUCH URINE HE IS RETATINING AND IF NEEDED POSSIBLE PUT A STRAIGHT CATHETER. THE PATIENT THEN GOT UPSET AND STATED "NO YOU WONT I WILL REFUSE!." PATIENT EDUCATED AND SITUATION WAS EASILY DEESCALATED. PATIENT IS AWAKE AND ALERT, SITTING UP IN BED. PATIENT CONFUSED TO PLACE HOWEVER ORIENTED TO PERSON AND TIME, CALL LIGHT WTIHIN REACH, FALL PRECAUTIONS IN PLACE.BED ALARM ON MID SENSITIVITY.
--- NOTE | 2024-01-10 18:50 | NUR ---
PATIENT WAS BLADDER SCANNED D/T NO URINARY OUTPUT. BLADDER SCAN SHOWS >2071CC. PATIENT WAS REFUSING A STRAIGHT CATHETER TO EMPTY HIS BLADDER, HOWEVER AFTER EDUCATION FROM THIS RN AND THE HOUSESMITH RN, THE PATIENT WAS AGREEABLE TO A STRAIGHT CATH X1. STRAIGHT CATH SUCCESFUL WITH 2475CC OF DARK LAURA/MALODOROUS URINE OBTAINED. PATEINT TOELRATED WELL. URIEN SENT TO LAB. PATIENT SITTING UP IN BED, CALL LIGHT WITHIN REACH, FALL PRECAUTIONS IN PLACE, BED ALARM ON
[2024-01-10 19:09] LABS: COLLECTION METHOD IN
[2024-01-10 19:23] LABS: PH 6.5 (5.0-8.5); URINE APPEARANCE CLEAR (CLEAR/HAZY); URINE BLOOD NEGATIVE (NEGATIVE); URINE COLOR YELLOW (YELLOW); URINE GLUCOSE TRACE (NEGATIVE); URINE KETONE NEGATIVE (NEGATIVE); URINE NITRATE NEGATIVE (NEGATIVE); URINE PROTEIN(semi-quant) 3+ (NEGATIVE)
[2024-01-11] VITALS (14 sets, daily range): BP systolic 124–183; BP diastolic 70–87; PULSE 57–67; TEMP 97.5–97.9
--- NOTE | 2024-01-11 01:14 | NUR ---
patient lying in bed, alert and oriented x4 with hallucinations and off and on confusion. denies chest pain and shortness of breath. IV in RAC is patent, site CDI. no remarkale skin findings, BLE with nonpitting edema and acewraps applied. bladder scan performed with 430 mls noted, when offered a urinal, pt states "i don't feel like I have to pee right now". fall precautions in place, call light within reach. pt has no further needs, questions or concerns at this time.
[2024-01-11 07:20] LABS: BASO # 0.1 K/mm3 (0.0-0.2); BASO % 1.5 % (0.0-2.0); EOS # 0.5 K/mm3 (0.0-0.7); EOS % 7.7 % (0.0-4.0); GRAN # 3.4 K/mm3 (1.4-6.5); GRAN % 51.8 % (42.2-75.2); HEMATOCRIT 40.4 % (42.0-52.0); HEMOGLOBIN 13.4 g/dl (13.5-18.0); LYMPH # 1.9 K/mm3 (1.2-3.4); LYMPH % 27.9 % (20.0-51.0); MEAN CELL VOLUME 89 fl (80.0-100.0); MEAN CORPUSCULAR HEMOGLOBIN 29 pg (27-31); MEAN CORPUSCULAR HGB CONC 33 g/dl (33.0-37.0); MEAN PLATELET VOLUME 11.4 fl (7.4-10.4); MONO # 0.7 K/mm3 (0.1-0.6); MONO % 10.5 % (1.7-9.3); PLATELET COUNT 198 K/mm3 (130-400); RED BLOOD COUNT 4.56 M/mm3 (4.20-5.60); REDCELL DISTRIBUTION WIDTH-CV 12.3 % (11.5-14.5)
[2024-01-11 07:47] LABS: CALCIUM 8.9 mg/dL (8.4-10.2); CREATININE, serum 3.08 mg/dL (0.72-1.25); POTASSIUM 4.2 mEq/L (3.5-4.5)
--- NOTE | 2024-01-11 08:13 | NUR ---
PATIENT TOLD THIS RN "TELL THEM IM STILL AT THE [facility]." THIS RN PROVIDED REORIENTATION. PATIENTS PHONE THEN BEGAN TO RING. THIS RN HEARD HIS ANSWER AND SAY "GOOD MORNING." THE PATIENT THEN RESPOONDED "HEY, IM STILL IN A DREAM." I WAS UNABLE TO HEAR HIS WIFES RESPONSE, HOWEVER THE PATIENT STATED "NO, MY BODY IS IN MY ROOM, BUT MY MIND IS STILL AT THE [employer] [facility]." PATIENT WAS PROVIDED REORIENTATION AGAIN. PATIENT IS AWAKE AND ALERT SITTING UP IN BED. [facility] NEWS ON THE TELVISION. PATIENTS BED ALARM IS ON, HESTER IS PATENT AND DRAINING.
--- NOTE | 2024-01-11 14:42 | NUR ---
PATIENTS UPDATED ON CURRENT STATUS AND PLAN OF CARE.
--- NOTE | 2024-01-11 16:06 | NUR ---
Wire Frame Lampshade Maker sent clinical updates via secure email to both [facility] and [facility]. Mian at [facility] advised they could not accept in current condition due to hallucentations and behaviors. SW will continue to send updates and collaborate with Hospitalist team. Discharge Plan: SNF
--- NOTE | 2024-01-11 19:10 | NUR ---
PATIENT RESTING IN BED WITH TV ON WITH NO FAMILY PRESENT WITH NO ACUTE DISTRESS NOTED. PATIENT ON ROOM AIR. INT TO RIGHT AC INTACT WITH NO COMPLICATIONS NOTED. HESTER CATH INTACT, PATENT, AND DRAINING DARK YELLOW URINE. BEDSIDE SHIFT REPORT COMPLETED WITH PAZ AT THIS TIME. DIETARY DELIVERED DINNER TRAY. TRAY SET UP FOR PATIENT AND PATIENT REFUSED TO EAT. PATIENT CONTINUES TO BE CONFUSED. ALL NEEDS MET. SEIZURE PRECAUTIONS IN PLACE. BED IN LOW POSITION WITH WHEELS LOCKED WITH RAILS UP X4 AND CALL LIGHT WITHIN REACH. BED ALARM ON.
[2024-01-12] VITALS (7 sets, daily range): BP systolic 113–190; BP diastolic 63–89; PULSE 56–79; TEMP 97.4–98.1
[2024-01-12 06:44] LABS: HEMATOCRIT 40.7 % (42.0-52.0); HEMOGLOBIN 14.1 g/dl (13.5-18.0); MEAN CELL VOLUME 87 fl (80.0-100.0); MEAN CORPUSCULAR HEMOGLOBIN 30 pg (27-31); MEAN CORPUSCULAR HGB CONC 35 g/dl (33.0-37.0); MEAN PLATELET VOLUME 11.5 fl (7.4-10.4); PLATELET COUNT 187 K/mm3 (130-400); RED BLOOD COUNT 4.69 M/mm3 (4.20-5.60); REDCELL DISTRIBUTION WIDTH-CV 12.2 % (11.5-14.5)
[2024-01-12 07:01] LABS: CALCIUM 8.9 mg/dL (8.4-10.2); CREATININE, serum 2.92 mg/dL (0.72-1.25)
[2024-01-12] MEDS ORDERED: Menthol Cough/Sore Throat LOZENGE MM PRN (10:00)
[2024-01-12] MEDS ORDERED: Finasteride 5 MG TAB PO SCH (11:00)
--- NOTE | 2024-01-12 11:00 | NUR ---
PATIENT IS AWAKE AND ALERT SITTINGUP IN BED. PATIENT IS ORIENTED TO SELF AND TIME BUT NOT PLACE. PATIENTS STATED THIS IS NOT ABNORMAL FOR THE PATIENT AND THAT HIS CONFUSION WORSENS WHEN HOSPITALIZED. PATIETN DENIES ANY NEEDS OR COMPLAINTS. HE IS COOPERATIVE WITH STAFF. CALL LIGHT WTIHIN REACH, FALL PRECAUTIONS IN PLACE.
[2024-01-12] MEDS ORDERED: SYMMETREL100 MG PO (11:16)
[2024-01-12] MEDS ORDERED: FLOMAX 0.40.4 MG/CAP PO (11:16)
[2024-01-12] MEDS ORDERED: PLAVIX 75MG TAB75 MG PO (11:17)
[2024-01-12] MEDS ORDERED: NITROSTAT0.4 MG/TAB SL (11:18)
[2024-01-12] MEDS ORDERED: LIPITOR 80MG80 MG PO (11:18)
[2024-01-12] MEDS ORDERED: RANEXA 500MG T500 MG PO (11:18)
[2024-01-12] MEDS ORDERED: APRESOLINE 25MG25 MG PO (11:18)
[2024-01-12] MEDS ORDERED: ASPIRIN 81M81 MG/TA2 PO (11:19)
[2024-01-12] MEDS ORDERED: COZAAR 50MG50 MG/TAB PO (11:19)
[2024-01-12] MEDS ORDERED: TOPROL XL 50MG50 MG PO (11:19)
[2024-01-12] MEDS ORDERED: LEXAPRO20 MG PO (11:20)
[2024-01-12] MEDS ORDERED: HCTZ12.5TAB PO (11:21)
[2024-01-12] MEDS ORDERED: PROTONIX 40MG T40 MG PO (11:21)
[2024-01-12] MEDS ORDERED: HUMULIN 70/30 PE3 ML SQ (11:22)
[2024-01-12] MEDS ORDERED: PROSCAR 5MG5 MG PO (11:23)
--- NOTE | 2024-01-12 12:03 | NUR ---
PATIEN IV AND TELE REMOVED, PATIET DRESEED WITH AVAILABLE CLEAN CLOTHES FOR TRANSFR TO [facility]. [facility] NURSE ANASTASIA GIVEN REPOT ON PATINT AND GIVEN CALL BACK NUMBER IF FURTHER QUESTIONS ARISE.
--- NOTE | 2024-01-12 12:45 | NUR ---
PATIENT TAKEN VIA WHEELCHAIR TO ER ENTRANCE HWERE HE LEFT IN STABLE CONDITION WITH [facility] TRANSPORTATION.
--- NOTE | 2024-01-12 14:17 | NUR ---
[employer] faxed clinical updates to Mian at [facility]. SW advised per family, patient normally has increased confusion while in the hospital. Mian stated they would accept for admission today. SAM faxed discharge orders and transport time was set for 1200. SAM contacted patient's , Nicolette with update. SAM reviewed IM form with Nicolette as patient is not oriented. Nicolette verbalized understanding and provided verbal consent as signature. SAM placed form in chart and provided copy in patient's discharge folder. Discharge Plan: [facility]
== END 2024-01-12 13:26 | DRG 281 ==
LOC: COL.ER 13:12 → MEDICAL 15:31
PROVIDERS: Emergency Medicine; Internal Medicine; Physician Assistant; ADMIT Internal Medicine
DX: I21.4 Non-ST elevation (NSTEMI) myocardial infarction (principal); F02.83 Dementia in other diseases classified elsewhere, unspecified severity, with mood disturbance; I13.0 Hypertensive heart and chronic kidney disease with heart failure and stage 1 through stage 4 chronic kidney disease, or unspecified chronic kidney disease; I50.32 Chronic diastolic (congestive) heart failure; N17.9 Acute kidney failure, unspecified; I25.10 Atherosclerotic heart disease of native coronary artery without angina pectoris; Z95.5 Presence of coronary angioplasty implant and graft; E78.5 Hyperlipidemia, unspecified; Z86.718 Personal history of other venous thrombosis and embolism; Z86.711 Personal history of pulmonary embolism; E11.40 Type 2 diabetes mellitus with diabetic neuropathy, unspecified; E11.22 Type 2 diabetes mellitus with diabetic chronic kidney disease; N18.9 Chronic kidney disease, unspecified; E03.9 Hypothyroidism, unspecified; Z86.73 Personal history of transient ischemic attack (TIA), and cerebral infarction without residual deficits; G20.A1 Parkinson's disease without dyskinesia, without mention of fluctuations; G40.909 Epilepsy, unspecified, not intractable, without status epilepticus; F32.A Depression, unspecified; N40.0 Benign prostatic hyperplasia without lower urinary tract symptoms; Z79.82 Long term (current) use of aspirin; Z79.4 Long term (current) use of insulin; F17.200 Nicotine dependence, unspecified, uncomplicated; Z79.890 Hormone replacement therapy; E11.649 Type 2 diabetes mellitus with hypoglycemia without coma; R33.9 Retention of urine, unspecified
CPT/HCPCS: A9500-JZ; G0378; J0360; J1650; J1815; J2405; J2785; J7030; Q3014; Q9967